=== PATIENT | female | born 1935 | race Caucasian/White ===

== ENCOUNTER 2016-11-16 08:13 | Inpatient (IN) | payer OTHER ==
[~2016-11-16 08:13] MED LIST: BACITRACIN 50,000 UNITS/10 ML SYR IRR ONE; BUPIVACAINE 0.25% 30 ML SDV ONE; BUPIVACAINE/EPI 0.25% 30 ML SDV ONE; CHLORHEXIDINE GLUC HIBICLENS 118 ML BTL TP ONE; DEXAMETHASONE 10 MG/ML VIAL IVP ONE; THROMBIN (RECOMBINANT) 5,000 UNIT VIAL TP ONE; ceFAZolin 2 GM/DEXTROSE 100 ML IV ONE; fentaNYL 100 MCG/2 ML INJ IT ONE; morphINE PF 5 MG/10 ML INJ IT ONE
[2016-11-16] MEDS ORDERED: CITRATE DEXTROSE SOLN 500 ML BAG ONE (08:52)
[2016-11-16] MEDS ORDERED: LIDOCAINE 1% 5 ML SDV ONE (09:04)
[2016-11-16] MEDS ORDERED: CEFAZOLIN 2 GM/DEXTROSE/100 ML BAG IV ONE (09:41)
[2016-11-16] MEDS ORDERED: MIDAZOLAM 2 MG/2 ML VIAL ONE (09:45)
[2016-11-16] MEDS ORDERED: REMIFENTANIL HCL 1 MG VIAL ONE (09:50)
[2016-11-16] MEDS ORDERED: KETAMINE 100 MG/10 ML SYR IVP ONE (09:50)
[2016-11-16] MEDS ORDERED: fentaNYL 100 MCG/2 ML INJ ONE ×4 (09:50→15:03)
[2016-11-16] MEDS ORDERED: PROPOFOL 200 MG/20 ML VIAL ONE (09:51)
[2016-11-16] MEDS ORDERED: LIDOCAINE 1% 5 ML SDV ID PRN (09:51)
[2016-11-16] MEDS ORDERED: LR 1,000 ML IV ONE (09:51)
[2016-11-16] MEDS ORDERED: PROPOFOL/EMULSION 500 MG/50 ML BOTTLE IV ONE (09:51)
[2016-11-16] MEDS ORDERED: LIDOCAINE 2% 5 ML SDV ONE (09:57)
[2016-11-16] MEDS ORDERED: ROCURONIUM 50 MG/5 ML VIAL ONE (09:58)
[2016-11-16] MEDS ORDERED: DESMOPRESSIN ACETATE 20 MCG in NS 50 ML IV ONE (11:00)
[2016-11-16] MEDS ORDERED: morphINE PF 5 MG/10 ML INJ ONE (11:12)
[2016-11-16] MEDS ORDERED: NALOXONE HCL 0.4 MG/ML INJ IVP PRN (14:09)
[2016-11-16] MEDS ORDERED: ONDANSETRON 4 MG/2 ML VIAL IVP PRN (14:09)
[2016-11-16] MEDS ORDERED: HYDROmorphONE/DILAUDID 1 MG/ML SYR IVP PRN (14:09)
[2016-11-16] MEDS ORDERED: LACTULOSE 20 GM/30 ML UDCUP PO PRN (14:09)
[2016-11-16] MEDS ORDERED: DIAZEPAM 5 MG TAB PO PRN (14:09)
[2016-11-16] MEDS ORDERED: DIAZEPAM 10 MG/2 ML SYR IVP PRN (14:09)
[2016-11-16] MEDS ORDERED: ONDANSETRON DISINTEGRATING 4 MG TAB PO PRN (14:09)
[2016-11-16] MEDS ORDERED: MAGNESIUM HYDROXIDE 30 ML UDCUP PO PRN (14:09)
[2016-11-16] MEDS ORDERED: METHOCARBAMOL 750 MG TAB PO PRN (14:09)
[2016-11-16] MEDS ORDERED: HYDROmorphONE/DILAUDID 6 MG/30 ML PCA IV PRN (14:09)
[2016-11-16] MEDS ORDERED: BISACODYL 10 MG SUPP PR PRN (14:09)
--- NOTE | 2016-11-16 14:17 | POSTOPPROG ---
Post Op Note Date of Operation: 11/16/16 Surgeon: Earl Olguin Fire Crew Worker: Xu Anesthesiologist: Warm Anesthesia: GET(General Endotracheal) Pre-op Diagnosis: L3/4, L4/5 spondylolisthesis Post-op Diagnosis: same Indication: low back pain, leg pain Procedure: L3/4, L4/5 TLIF Findings: djd/stenosis Inf/Abcess present in the surg proc area at time of surgery?: No EBL: 50-100 (100 ml ebl) Complications: None Drains: [place] (CLOVER x 1)
--- NOTE | 2016-11-16 14:19 | SOAPPROG ---
[facility] Progress Note Assessment/Plan: Assessment: 81 yo M sp L3-5 TLIF Plan: stable to 3N PT/OT IM to follow for medical issues please call with neuro changes 11/16/16 14:17 Subjective: + lbp, no leg pain. Objective: somnlent PERRL, no facial droop JEFF x 4 + light touch ICD10 Worksheet Patient Problems: Problems Problem Status Diagnosed Fusion of spine of lumbar region Acute - ICD10 Problem Qualifiers (1) Fusion of spine of lumbar region
--- NOTE | 2016-11-16 15:51 | GOP ---
[f rep st] OPERATIVE REPORT DATE OF OPERATION: 11/16/2016 SURGEON: Earl Olguin MD FIELD SERVICES MANAGER: Yousif Mcnair. ANESTHESIA: General endotracheal. PREOPERATIVE DIAGNOSIS: Severe multilevel degenerative joint disease with unstable spondylolisthesis and critical spinal stenosis and lateral recess impingement. Intractable back pain, and right great er than left lower extremity radicular pain and bilateral neurogenic claudication. Failed conservati ve care. High risk surgical candidate given age of 81 years, diabetes, and other comorbidities, and required surgical intervention. POSTOPERATIVE DIAGNOSIS: Severe multilevel degenerative joint disease with unstable spondylolisthesi s and critical spinal stenosis and lateral recess impingement. Intractable back pain, and right grea ter than left lower extremity radicular pain and bilateral neurogenic claudication. Failed conservat benito care. High risk surgical candidate given age of 81 years, diabetes, and other comorbidities, and required surgical intervention. PROCEDURE PERFORMED: Mini open exposure for right-sided L3-4 and L4-5 far lateral trans-facet transp edicular decompression with L3-5 posterior segmental (pedicle screw) fixation and posterolateral fusi on with local autograft and bone morphogenic protein. L3-4 and L4-5 posterior/transforaminal lumbar interbody fusion with 2 structural PEEK interbody spacers, local autograft and bone morphogenic prote in. Use of intraoperative microscopy, fluoroscopy, and computer volumetric stereotactic navigation w ith intraoperative neurophysiologic testing. Injection of intrathecal narcotic analgesics and subcut aneous and intramuscular local anesthesia for postoperative pain control. FINDINGS: ESTIMATED BLOOD LOSS: 100 cc. DESCRIPTION OF PROCEDURE: After informed consent was obtained, the patient was taken to the operatin g room and placed in the prone position on the Willie table. The lumbosacral area was prepped and d raped in sterile fashion. After fluoroscopic localization of the correct levels, the subcutaneous an d intramuscular tissues were infiltrated with local anesthesia. A midline linear incision was then created from approximately L3 through L5. This was carried down t o the fascial layer, which was then incised using the monopolar cautery and carried in a subperiostea l plane along the spinous processes and out the lamina bilaterally. Intraoperative fluoroscopy was a gain utilized to verify the correct levels. Following this, the dissection was carried out over the facet joints. The patient had extremely marycruz re arthritis and it was difficult to even identify the normal anatomy. I was able to do this with x- rays and normal anatomic landmarks. Following this, the cortical bone was scraped clear of any soft tissue and the microscope was brought in. A right-sided far lateral trans-facet transpedicular decompression was then performed at the L3-4 and L4-5 levels with complete unroofing of the facet joint and neuroforamen at L3, L4, and L5. This was a very extensive decompression, and was quite time consuming and technically challenging given the shae santana's very severe arthritis. Eventually, I was able to extensively decompress the thecal sac and neural elements. Her ligament flavum was so severely hypertrophied that it was extremely stuck to th e dura and required meticulous dissection and careful teasing of it off this in order to avoid a CSF leak. Eventually, I was able to perform a very extensive and thorough decompression of both of the c entral canal and the neuroforamen, and the lateral recess on the left by angling the microscope acros s the midline. The spinous processes were maintained, as were most of the lamina on the left side. Following this, the [employer] neuronavigational system was brought in and using computer volumetric chace reotactic navigation, pedicle screws were placed at L3, L4, and L5 on the right. It was very difficu lt to achieve really good fixation given the patient's distorted anatomy and steep angle of the pedic les. A couple of the screws did break out laterally and had to be realigned. Eventually, I did achi lena really good fixation. I was not happy with the thickness and sturdiness of the spinous processes for an interspinous process clamp, so instead I placed pedicle screws on the left as well. Each ind ividual screw was tested neurophysiologically with monopolar electrostimulation and interpretation of the potentials by the surgeon. Serial distraction was then created across first the L3-4 level, then the L4-5 level, during which ti me complete diskectomies were performed with preparation of the endplates and placement of 2 structur al PEEK interbody spacers with local autograft and bone morphogenic protein at each level for L3-4 an d L4-5 posterior/transforaminal lumbar interbody fusions. The screw and veronica systems were serially re moved, and longer rods placed with maximal lordosis and a slight amount of compression across both in terspaces in order to facilitate bony union and to minimize the potential for posterior graft migrati on. Following this, the wound was again copiously irrigated with antibiotic irrigation and meticulous hem ostasis was achieved. I elected to not place axial devices because I did not think it would add much . The remaining lamina and facet joints on the left were extensively decorticated, and the residual local autograft from the facetectomy along with bone morphogenic protein was placed out laterally for a posterolateral fusion from L3 through L5. 200 mcg of Duramorph along with 50 mcg of fentanyl were then injected intrathecally at L5-S1. The subcutaneous and intramuscular tissues were re-infiltrated with local anesthesia. A drain was pl aced and the wound was closed in a layered fashion using interrupted Vicryl sutures, followed by Ster i-Strips on the skin. COMPLICATIONS: None. INDICATIONS FOR PROCEDURE: The patient is an 81-year-old woman with intractable low back pain and ri ght greater than left lower extremity radicular and bilateral neurogenic claudication symptoms second vince to severe multilevel degenerative joint disease, and unstable spondylolisthesis and critical spin al stenosis and lateral recess impingement at the L3-4 and L4-5 levels. She also has degenerative jagruti int disease and a broad-based disk bulge at L2-3, but given the patient's age of 81 years, I felt riki t it would be prudent to try a smaller surgery in the hopes that this would solve most of her problem s and not extend up to the L2 level, even though this could easily be justified. The patient underst ands this and agrees, and wishes to focus on the L3-4 and L4-5 at this time. Even with this, she und erstands it is high risk for surgery given her age of 81 years and comorbidities, such as diabetes. DISPOSITION: The patient was extubated and transferred to the recovery room in stable condition. /[id number]/MODL
[2016-11-16] MEDS: NS W/ 20 KCl/L 1,000 ML IV SCH (16:07)
[2016-11-16] MEDS: HYDROCODONE/APAP 10/325 TAB PO PRN (16:35)
[2016-11-16] MEDS: GABAPENTIN 300 MG CAP PO SCH ×3 (16:36→21:34)
[2016-11-16] MEDS: POLYETHYLENE GLYCOL 3350 17 GM PKT PO SCH ×2 (16:37→21:34)
--- NOTE | 2016-11-16 17:29 | GCON ---
[f rep st] CONSULTATION INTERNAL MEDICINE CONSULTATION DATE OF CONSULTATION: 11/16/2016 REFERRING PHYSICIAN: Earl Olguin MD REASON FOR CONSULTATION: Multiple medical problems. HISTORY OF PRESENT ILLNESS: This is an 81-year-old female who just underwent right-sided lumbar deco mpression for severe radicular pain. There were no complications with surgery, although the patient did have severe osteoarthritis. Currently, she is doing well. She has some incisional pain at this time. She denies any shortness of breath or chest pain. She has a history of coronary artery diseas e, status post stenting many years ago. She also has a history of hypertension and a previous histor y of breast cancer. She denies any history of DVTs or bleeding. REVIEW OF SYSTEMS: A 10-point review of systems was obtained and other than stated above was negativ e. PAST MEDICAL HISTORY: 1. Hypertension. 2. Breast cancer. 3. Mild diabetes. 4. Hyperlipidemia. 5. History of coronary artery disease, status post stenting in the s. MEDICATIONS: Reviewed. SOCIAL HISTORY: No smoking or alcohol. Lives in [place] but used to live here. FAMILY HISTORY: Both parents are . PHYSICAL EXAM: VITAL SIGNS: Afebrile. Blood pressure is 112/68. Heart rate is 104. Oxygen satura tion 94% on 4 L. GENERAL: The patient is well developed, in no apparent distress. HEENT: Nonicter ic sclerae. Extraocular movements intact. Moist mucous membranes. NECK: Supple. No thyromegaly. LUNGS: Good effort. Clear to auscultation bilaterally. CARDIOVASCULAR: Regular rate and rhythm. No murmurs, gallops, or rubs. ABDOMEN: Positive bowel sounds. Soft, nontender, nondistended. No hepatosplenomegaly. EXTREMITIES: Without clubbing, cyanosis, or edema. SKIN: Without rash. Warm, dry, and intact. NEUROLOGIC: Alert and oriented x3. Moving all 4 extremities equally. PSYCH: No rmal mood and affect. LABS: None. ASSESSMENT: An 81-year-old female status post lumbar decompression. PLAN: 1. Status post lumbar decompression. We will continue to monitor the patient along with neurosurger y. 2. Hyperlipidemia. Continue medications. 3. History of coronary artery disease. We will restart aspirin whenever it is appropriate per neuro surgery. This is no hurry in this. 4. Type 2 diabetes. This appears to be mild. Can restart metformin. 5. DVT prophylaxis. Start Lovenox when appropriate. Thank you for this consultation. We will follow along with you. /[id number]/MODL
--- NOTE | 2016-11-16 17:47 | DX ---
Fluoroscopy Provided for Lumbar Spine Surgery Indication: Lumbar spine fusion. Technique: 43.1 seconds of fluoroscopy time was utilized. Cumulative dose: 26.12 mGy. Comparison: MRI lumbar spine dated August 02, 2016. Findings: Two (2) intraoperative spot films reveal placement of three-level posterior fusion construc t. Impression: Fluoroscopy provided for intraoperative localization.
[2016-11-16] MEDS: metFORMIN HCL 500 MG TAB PO SCH (18:35)
[2016-11-16] MEDS: FAMOTIDINE 20 MG/NACL 50 ML IV SCH (21:33)
[2016-11-16] MEDS: SENNOSIDES/DOCUSATE SODIUM TAB PO SCH (21:34)
[2016-11-17] MEDS: HYDROCODONE/APAP 10/325 TAB PO PRN (01:11)
[2016-11-17] MEDS: NS W/ 20 KCl/L 1,000 ML IV SCH (06:15)
[2016-11-17 06:27] LABS: % IMMATURE GRANULYOCYTES 0.3 % (0.0-1.1); ABSOLUTE IMMATURE GRANULOCYTES 0.03 10^3/uL (0.00-0.10); ADD DIFF? NO; ADD MORPH? NO; ADD SCAN? NO; ATYPICAL LYMPHOCYTE FLAG 0 (0-99); FRAGMENT RBC FLAG 0 (0-99); HEMATOCRIT 31.3 % (38.0-47.0); HEMOGLOBIN 10.1 g/dL (12.6-16.3); LEFT SHIFT FLG 0 (0-99); LIPEMIA HEMOLYSIS FLAG 80 (0-99); MEAN CELL HEMOGLOBIN 32.8 pg (27.9-34.1); MEAN CELL HEMOGLOBIN CONCENTR. 32.3 g/dL (32.4-36.7); MEAN CELL VOLUME 101.6 fL (81.5-99.8); MEAN PLATELET VOLUME 11.3 fL (8.7-11.7); PLATELET CLUMPS FLAG 0 (0-99); PLATELET COUNT 194 10^3/uL (150-400); RED BLOOD CELL COUNT 3.08 10^6/uL (4.18-5.33); RED CELL DISTRIBUTION WIDTH 12.3 % (11.5-15.2)
[2016-11-17 06:51] LABS: ANION GAP 8 mEq/L (8-16); CALCIUM 8.3 mg/dL (8.5-10.4); CARBON DIOXIDE 25 mEq/l (22-31); CHLORIDE 108 mEq/L (97-110); CREATININE 0.6 mg/dL (0.6-1.0); GLOMERULAR FILTRATION RATE > 60; GLUCOSE 140 mg/dL (70-100); POTASSIUM 4.7 mEq/L (3.5-5.2); SODIUM 141 mEq/L (134-144)
[2016-11-17] MEDS: FAMOTIDINE 20 MG/NACL 50 ML IV SCH ×2 (07:49→20:57)
[2016-11-17] MEDS: POLYETHYLENE GLYCOL 3350 17 GM PKT PO SCH ×3 (07:49→20:57)
[2016-11-17] MEDS: MAGNESIUM OXIDE 400 MG TAB PO SCH (07:50)
[2016-11-17] MEDS: ASCORBIC ACID 500 MG TAB PO SCH (07:50)
[2016-11-17] MEDS: GABAPENTIN 300 MG CAP PO SCH ×3 (07:50→20:57)
[2016-11-17] MEDS: SERTRALINE HCL 25 MG TAB PO SCH (07:50)
[2016-11-17] MEDS: PRAVASTATIN SODIUM 20 MG TAB PO SCH (07:50)
[2016-11-17] MEDS: metFORMIN HCL 500 MG TAB PO SCH ×2 (07:50→17:55)
[2016-11-17] MEDS: NIACIN 500 MG TAB PO SCH (07:50)
[2016-11-17] MEDS: PANTOPRAZOLE SODIUM 40 MG TAB PO SCH (07:51)
[2016-11-17] MEDS: SENNOSIDES/DOCUSATE SODIUM TAB PO SCH ×2 (07:51→20:57)
[2016-11-17] MEDS: ANASTROZOLE 1 MG TAB PO SCH (07:51)
[2016-11-17] MEDS: ENOXAPARIN 40 MG/0.4 ML SYR SC SCH (07:51)
--- NOTE | 2016-11-17 08:56 | NEUSURGPN ---
Date of Surgery: 11/16/16 Post Op Day: 1 Assessment/Plan: POD #1 status post L3-5 TLIF. Doing well this AM. Pain controlled Plan: Advance with PT/OT LSO when out of bed lumbar xrays today Continue CLOVER drain Discussed with Dr. Thompson Subjective: lying in bed. pain well controlled denies numbness or tingling Objective: NEURO: WINKLER, sens +LT speech clear, awake, alert Dressing: CDI Urinary Catheter in Place: No Catheter Insertion Date: 11/16/16 - CLOVER Drain Subfascial Wound Drainage (ml): 35 - Physician Discussed Patient with Dr.: Clau Neurosurgery Physical Exam - Vitals, I&O, Labs I and O 11/16/16 11/17/16 11/18/16 05:59 05:59 05:59 Intake Total 2950 1250 Output Total 880 535 Balance 2070 715 Weight 63.503 kg Intake: Oral (ml) 500 250 IV Intake (ml) 2450 IV Infused (ml) 1000 ceFAZolin 1 GM/DEXTROSE 50 50 ml @ 200 mls/hr IV Q8H SIMIN Rx#:[id number] Famotidine 20 mg/NaCl 50 50 ml @ 200 mls/hr IV Q12HRS SIMIN Rx#:[id number] NS W/ 20 KCl/L 1,000 ml @ 900 75 mls/hr IV CONT SIMIN Rx #:[id number] Output: Urine (ml) 250 500 Catheter 250 500 Estimated Blood Loss (ml) 250 Wound Drainage (ml) 380 35 Right Back [place] 380 35 Other: Number of Voids Catheter 1 Vital Signs Temp Pulse Resp BP Pulse Ox 36.7 C 94 16 112/41 L 97 11/17/16 07:36 11/17/16 07:36 11/17/16 07:36 11/17/16 07:36 11/17/16 07:36 Laboratory Results 11/17/16 04:21 11/17/16 04:21 ICD10 Worksheet Patient Problems: Problems Problem Status Diagnosed Fusion of spine of lumbar region Acute
[2016-11-17] MEDS ORDERED: NON-FORMULARY NEW DRUG (Lovastatin [Lovastatin] 20 MG) PO SCH (09:00)
[2016-11-17] MEDS ORDERED: NON-FORMULARY NEW DRUG (Omeprazole [Prilosec 20 Mg] 40 MG) PO SCH (09:00)
--- NOTE | 2016-11-17 09:15 | DX ---
Lumbar Spine, AP and Lateral Views 8:47 a.m. Clinical History: 81-year-old female who underwent an L3-L5 TLIF on November 16, 2016 and presents for postoperative assessment. Comparison Study: Intraoperative fluoroscopic images, dated November 16, 2016, and an outside MRI of t lumbar spine, dated August 02, 2016. Findings: There are five non-ribbearing lumbar-type vertebral bodies with hypoplastic T12 ribs. The b ones are mildly demineralized; however, there is no compression fracture. The patient has undergone p osterior spinal fusion from L3 to L5 with longitudinally-oriented rods secured by transpedicular scre ws. Interbody prosthetic material is seen at the L3-L4 and L4-L5 disk interspaces. There is severe L5 -S1 degenerative disk space narrowing. There is 2 mm of L2 anterolisthesis above L3, 9 mm of L4 anter olisthesis above L5, and 4 mm of L5 anterolisthesis above S1. A surgical drain is seen posteriorly. T here is mural calcification of the abdominal aorta measuring 2.6 cm proximally and 2.0 cm distally. T race mid-dextrothoracic curvature is seen. There is a calcification to the left of midline in the cau tanner pelvis, which is nonspecific but could be related to a mesenteric lymph node or a calcified leio myoma. Impression: Postoperative changes following arthrodesis from L3 to L5.
[2016-11-17] MEDS ORDERED: PROMETHAZINE HCL 25 MG/ML VIAL IV PRN (10:40)
[2016-11-17] MEDS: oxyCODONE IR 5 MG TAB PO PRN (15:56)
--- NOTE | 2016-11-17 16:53 | HOSPPROG ---
Hospitalist Progress Note Assessment/Plan: # Diabetes mellitus- blood sugars 140-236- when taking more p. o. blood sugars may go up - continue metformin # coronary artery disease- no chest pain patient clinically stable- 96% on 2 L - continue home medications # hyperlipidemia- continue home meds # Status post lumbar decompression- lumbar x-ray( personally reviewed and interpreted) shows postoperative changes - management prone Neurosurgery # acute nausea- suspect recovery secondary to anesthetic - continue p.r.n. antiemetics and limit pain medications # prophylaxis per Neurosurgery # Diet as tolerated #Disposition greater than 2 midnights as the patient is requiring IV antiemetics and pain meds postop have discussed the case with nursing will continue pain and meds and p.r.n. antiemetics Subjective: very nauseated Objective: Vital Signs Temp Pulse Resp BP Pulse Ox 36.6 C 90 16 90/63 L 96 11/17/16 16:19 11/17/16 16:19 11/17/16 16:19 11/17/16 16:19 11/17/16 16:19 Laboratory Results 11/17/16 04:21 11/17/16 04:21 11/16/16 11/17/16 11/18/16 05:59 05:59 05:59 Intake Total 2950 1700 Output Total 880 750 Balance 2070 950 - Physical Exam Constitutional: appears nourished Eyes: anicteric sclera Ears, Nose, Mouth, Throat: moist mucous membranes Cardiovascular: regular rate and rhythym Respiratory: no respiratory distress, no rales or rhonchi Gastrointestinal: normoactive bowel sounds, soft, non-tender abdomen Genitourinary: no bladder fullness Skin: warm, normal color Musculoskeletal: No asymmetric calves Neurologic: AAOx3 Psychiatric: interacting appropriately, not anxious Lymph, Heme, Immunologic: no cervical LAD ICD10 Worksheet Patient Problems: Problems Problem Status Diagnosed Fusion of spine of lumbar region Acute
[2016-11-18] MEDS: NS W/ 20 KCl/L 1,000 ML IV SCH ×2 (03:52→17:16)
[2016-11-18] MEDS: HYDROCODONE/APAP 10/325 TAB PO PRN (03:55)
[2016-11-18 05:34] LABS: ANION GAP 5 mEq/L (8-16); CALCIUM 8.3 mg/dL (8.5-10.4); CARBON DIOXIDE 27 mEq/l (22-31); CHLORIDE 105 mEq/L (97-110); CREATININE 0.6 mg/dL (0.6-1.0); GLOMERULAR FILTRATION RATE > 60; GLUCOSE 135 mg/dL (70-100); POTASSIUM 4.4 mEq/L (3.5-5.2); SODIUM 137 mEq/L (134-144)
--- NOTE | 2016-11-18 08:15 | NEUSURGPN ---
Date of Surgery: 11/16/16 Post Op Day: 2 Assessment/Plan: POD #2 status post L3-5 TLIF. Doing well this AM. Pain controlled Plan: - wear brace when OOB - PT/OT - lumbar x-rays: hardware in good placement - CLOVER drain - possible dc later today if continues to do well Subjective: No lower extremity pain, numbness, tingling. Back pain controlled. Was able to sleep through the night. Objective: Awake. Alert. PERRL. EOMI Following commands Strength full at 5/5 Sensation intact Incision with dressing c/d/i Catheter Insertion Date: 11/16/16 - Physician Discussed Patient with : Clau Neurosurgery Physical Exam - Vitals, I&O, Labs I and O 11/17/16 11/18/16 11/19/16 05:59 05:59 05:59 Intake Total 2950 3900 Output Total 880 1632 Balance 2070 2268 Weight 63.503 kg Intake: Oral (ml) 500 1050 IV Intake (ml) 2450 900 IV Infused (ml) 1950 ceFAZolin 1 GM/DEXTROSE 50 50 ml @ 200 mls/hr IV Q8H SIMIN Rx#:[id number] Famotidine 20 mg/NaCl 50 100 ml @ 200 mls/hr IV Q12HRS SIMIN Rx#:[id number] NS W/ 20 KCl/L 1,000 ml @ 1800 75 mls/hr IV CONT SIMIN Rx #:[id number] Output: Urine (ml) 250 1300 Catheter 250 500 Bedside Commode 800 Estimated Blood Loss (ml) 250 Emesis (ml) 100 Wound Drainage (ml) 35 Subfascial 35 Wound Drainage (ml) 380 197 Right Back [place] 380 197 Other: Intake Quantity Yes Sufficient Number of Voids Catheter 1 Bedside Commode 1 Number of Emesis 2 Occurrences Vital Signs Temp Pulse Resp BP Pulse Ox 37.1 C 86 16 108/60 97 11/18/16 07:50 11/18/16 07:50 11/18/16 07:50 11/18/16 07:50 11/18/16 07:50 Laboratory Results 11/17/16 04:21 11/18/16 04:25 ICD10 Worksheet Patient Problems: Problems Problem Status Diagnosed Fusion of spine of lumbar region Acute
[2016-11-18] MEDS: GABAPENTIN 300 MG CAP PO SCH ×3 (09:21→21:04)
[2016-11-18] MEDS: ENOXAPARIN 40 MG/0.4 ML SYR SC SCH (09:21)
[2016-11-18] MEDS: ANASTROZOLE 1 MG TAB PO SCH (09:21)
[2016-11-18] MEDS: ASCORBIC ACID 500 MG TAB PO SCH (09:21)
[2016-11-18] MEDS: SERTRALINE HCL 25 MG TAB PO SCH (09:21)
[2016-11-18] MEDS: PRAVASTATIN SODIUM 20 MG TAB PO SCH (09:22)
[2016-11-18] MEDS: NIACIN 500 MG TAB PO SCH (09:22)
[2016-11-18] MEDS: MAGNESIUM OXIDE 400 MG TAB PO SCH (09:22)
[2016-11-18] MEDS: metFORMIN HCL 500 MG TAB PO SCH ×2 (09:23→17:16)
[2016-11-18] MEDS: FAMOTIDINE 20 MG/NACL 50 ML IV SCH (09:23)
[2016-11-18] MEDS: SENNOSIDES/DOCUSATE SODIUM TAB PO SCH ×2 (09:23→21:04)
[2016-11-18] MEDS: PANTOPRAZOLE SODIUM 40 MG TAB PO SCH (09:23)
[2016-11-18] MEDS: diphenhydrAMINE 25 MG CAP PO PRN (10:39)
[2016-11-18] MEDS: POLYETHYLENE GLYCOL 3350 17 GM PKT PO SCH ×3 (12:05→21:04)
--- NOTE | 2016-11-18 14:20 | HOSPPROG ---
Hospitalist Progress Note Assessment/Plan: # Diabetes mellitus- blood sugars 130-145- taking more p. o. today - nausea resolved - continue metformin # coronary artery disease- no chest pain patient clinically stable- 97% on 2 L - continue home medications # hyperlipidemia- continue home meds # Status post lumbar decompression- lumbar x-ray (personally reviewed and interpreted) shows postoperative changes - management prone Neurosurgery # acute nausea- suspect recovery secondary to anesthetic - continue p.r.n. antiemetics and limit pain medications # prophylaxis per Neurosurgery # Diet - diabetic # Disposition greater than 2 midnights as the patient is requiring IV antiemetics and pain meds postop have discussed the case with nursing - suspect flushing this am related to niacin Subjective: nausea markedly improved Objective: Vital Signs Temp Pulse Resp BP Pulse Ox 36.7 C 91 16 107/47 L 97 11/18/16 12:00 11/18/16 12:00 11/18/16 12:00 11/18/16 12:00 11/18/16 12:00 Laboratory Results 11/17/16 04:21 11/18/16 04:25 11/17/16 11/18/16 11/19/16 05:59 05:59 05:59 Intake Total 2950 3900 Output Total 880 1632 Balance 2070 2268 - Physical Exam Constitutional: appears nourished Eyes: anicteric sclera Ears, Nose, Mouth, Throat: moist mucous membranes Cardiovascular: regular rate and rhythym Respiratory: no respiratory distress, no rales or rhonchi Gastrointestinal: normoactive bowel sounds, soft, non-tender abdomen Genitourinary: no bladder fullness Skin: warm, normal color Musculoskeletal: No asymmetric calves Neurologic: AAOx3 Psychiatric: interacting appropriately, not anxious Lymph, Heme, Immunologic: no cervical LAD ICD10 Worksheet Patient Problems: Problems Problem Status Diagnosed Fusion of spine of lumbar region Acute
[2016-11-18] MEDS: ACETAMINOPHEN 325 MG TAB PO PRN (17:43)
[2016-11-18] MEDS: FAMOTIDINE 20 MG TAB PO SCH (21:04)
[2016-11-19 04:34] VITALS: RESP 16
[2016-11-19] MEDS: SENNOSIDES/DOCUSATE SODIUM TAB PO SCH ×2 (08:17→21:18)
[2016-11-19] MEDS: PANTOPRAZOLE SODIUM 40 MG TAB PO SCH (08:17)
[2016-11-19] MEDS: SERTRALINE HCL 25 MG TAB PO SCH (08:17)
[2016-11-19] MEDS: ENOXAPARIN 40 MG/0.4 ML SYR SC SCH (08:17)
[2016-11-19] MEDS: FAMOTIDINE 20 MG TAB PO SCH ×2 (08:17→21:17)
[2016-11-19] MEDS: GABAPENTIN 300 MG CAP PO SCH ×3 (08:17→21:17)
[2016-11-19] MEDS: metFORMIN HCL 500 MG TAB PO SCH ×2 (08:17→17:59)
[2016-11-19] MEDS: NIACIN 500 MG TAB PO SCH (08:17)
[2016-11-19] MEDS: MAGNESIUM OXIDE 400 MG TAB PO SCH (08:18)
[2016-11-19] MEDS: PRAVASTATIN SODIUM 20 MG TAB PO SCH (08:18)
[2016-11-19] MEDS: ASCORBIC ACID 500 MG TAB PO SCH (08:18)
[2016-11-19] MEDS: ACETAMINOPHEN 325 MG TAB PO PRN ×2 (08:18→17:59)
[2016-11-19] MEDS: ANASTROZOLE 1 MG TAB PO SCH (08:18)
[2016-11-19] MEDS: POLYETHYLENE GLYCOL 3350 17 GM PKT PO SCH ×3 (09:20→21:18)
--- NOTE | 2016-11-19 10:18 | NEUSURGPN ---
Date of Surgery: 11/16/16 Post Op Day: 3 Assessment/Plan: POD #2 status post L3-5 TLIF. Doing well this AM. Pain controlled Plan: - wear brace when OOB - PT/OT - lumbar x-rays: hardware in good placement - CLOVER drain - pain slightly increased today, will work on further pain control today and discharge to [place] tomorrow Subjective: Having localized back pain. No LE symptoms. Sitting at side of bed. Objective: Awake. Alert. PERRL Following commands Muscle strength full at 5/5 Sensation intact Catheter Insertion Date: 11/16/16 - Physician Discussed Patient with : Clau Neurosurgery Physical Exam - Vitals, I&O, Labs I and O 11/18/16 11/19/16 11/20/16 05:59 05:59 05:59 Intake Total 3900 1450 900 Output Total 1632 340 Balance 2268 1110 900 Intake: Oral (ml) 1050 1450 IV Intake (ml) 900 IV Infused (ml) 1950 900 ceFAZolin 1 GM/DEXTROSE 50 50 ml @ 200 mls/hr IV Q8H SIMIN Rx#:[id number] Famotidine 20 mg/NaCl 50 100 ml @ 200 mls/hr IV Q12HRS SIMIN Rx#:[id number] NS W/ 20 KCl/L 1,000 ml @ 1800 900 75 mls/hr IV CONT SIMIN Rx #:[id number] Output: Urine (ml) 1300 250 Catheter 500 Bedside Commode 800 Toilet 250 Emesis (ml) 100 Wound Drainage (ml) 35 Subfascial 35 Wound Drainage (ml) 197 90 Right Back [place] 197 90 Other: Intake Quantity Yes Sufficient Number of Voids Catheter 1 Bedside Commode 1 Toilet 1 Number of Stools Toilet 2 Number of Emesis 2 Occurrences Vital Signs Temp Pulse Resp BP Pulse Ox 36.9 C 96 16 115/64 94 11/19/16 07:25 11/19/16 07:25 11/19/16 07:25 11/19/16 07:25 11/19/16 07:25 Laboratory Results 11/17/16 04:21 11/18/16 04:25 ICD10 Worksheet Patient Problems: Problems Problem Status Diagnosed Fusion of spine of lumbar region Acute
--- NOTE | 2016-11-19 15:16 | HOSPPROG ---
Hospitalist Progress Note Assessment/Plan: # Diabetes mellitus- blood sugars 135-232- taking adequate p. o. today - nausea resolved - continue metformin # coronary artery disease- no chest pain patient clinically stable- 94% on 2 L - continue home medications # hyperlipidemia- continue home meds # Status post lumbar decompression- lumbar x-ray (personally reviewed and interpreted) shows postoperative changes - management prone Neurosurgery # acute nausea- suspect recovery secondary to anesthetic - continue p.r.n. antiemetics and limit pain medications # prophylaxis per Neurosurgery # Diet - diabetic # Disposition greater than 2 midnights as the patient is requiring IV antiemetics and pain meds postop have discussed the case with nursing - continue pain management today Subjective: pain increased today Objective: Vital Signs Temp Pulse Resp BP Pulse Ox 36.9 C 96 16 115/64 94 11/19/16 07:25 11/19/16 07:25 11/19/16 07:25 11/19/16 07:25 11/19/16 07:25 Laboratory Results 11/17/16 04:21 11/18/16 04:25 11/18/16 11/19/16 11/20/16 05:59 05:59 05:59 Intake Total 3900 1450 900 Output Total 1632 340 Balance 2268 1110 900 - Physical Exam Constitutional: chronically ill appearing Ears, Nose, Mouth, Throat: moist mucous membranes Cardiovascular: regular rate and rhythym Respiratory: no respiratory distress, no rales or rhonchi Gastrointestinal: normoactive bowel sounds, soft, non-tender abdomen Genitourinary: no bladder fullness Skin: warm, normal color Musculoskeletal: No asymmetric calves Neurologic: AAOx3 Psychiatric: interacting appropriately, not anxious Lymph, Heme, Immunologic: no cervical LAD ICD10 Worksheet Patient Problems: Problems Problem Status Diagnosed Fusion of spine of lumbar region Acute
[2016-11-19] MEDS: oxyCODONE IR 5 MG TAB PO PRN (21:17)
[2016-11-19 23:46] VITALS: O2SAT 92
[2016-11-19] MEDS: diphenhydrAMINE 25 MG CAP PO PRN (23:56)
[2016-11-20 05:18] LABS: HEMATOCRIT 27.7 % (38.0-47.0); MEAN CELL HEMOGLOBIN 32.8 pg (27.9-34.1); MEAN CELL HEMOGLOBIN CONCENTR. 32.5 g/dL (32.4-36.7); MEAN CELL VOLUME 101.1 fL (81.5-99.8); RED BLOOD CELL COUNT 2.74 10^6/uL (4.18-5.33); RED CELL DISTRIBUTION WIDTH 12.1 % (11.5-15.2)
--- NOTE | 2016-11-20 06:57 | NEUSURGPN ---
Date of Surgery: 11/16/16 Post Op Day: 4 Assessment/Plan: Assessment: POD #4 status post L3-5 TLIF Plan: -doing better this am, pain well controlled -wear brace when OOB -PT/OT-CPM -lumbar x-rays: hardware in good placement -CLOVER drain to be removed-ok with Dr Thompson -pain stable on current plan-rxs already written on chart -passing gas/moving bowels -plan for dc home today -pt in agreement with dc as well Subjective: Awake and alert. NAD. Eating/drinking and voiding. No f/c/n/v/d. No other complaints or concerns. Objective: Awake. Alert. PERRL Following commands Muscle strength full at 5/5 Sensation intact CDI, no fluctuance Neuro Check Frequency: per routine Urinary Catheter in Place: No Catheter Insertion Date: 11/16/16 - Physician Discussed Patient with : [facility] Physical Exam - Vitals, I&O, Labs I and O 11/19/16 11/20/16 11/21/16 05:59 05:59 05:59 Intake Total 1450 1650 Output Total 340 30 Balance 1110 1620 Intake: Oral (ml) 1450 750 IV Infused (ml) 900 NS W/ 20 KCl/L 1,000 ml @ 900 75 mls/hr IV CONT SIMIN Rx #:[id number] Output: Urine (ml) 250 Toilet 250 Wound Drainage (ml) 90 30 Right Back Willie [place] 90 30 Other: Number of Voids Toilet 1 2 Number of Stools Toilet 2 Vital Signs Temp Pulse Resp BP Pulse Ox 36.7 C 88 16 117/66 92 11/19/16 23:45 11/19/16 23:45 11/19/16 23:45 11/19/16 23:45 11/19/16 23:45 Laboratory Results 11/20/16 04:16 11/18/16 04:25 ICD10 Worksheet Patient Problems: Problems Problem Status Diagnosed Fusion of spine of lumbar region Acute
[2016-11-20 07:23] VITALS: BP 137/64; PULSE 97; TEMP 98.4
[2016-11-20] MEDS: SENNOSIDES/DOCUSATE SODIUM TAB PO SCH (08:15)
[2016-11-20] MEDS: POLYETHYLENE GLYCOL 3350 17 GM PKT PO SCH (08:15)
[2016-11-20] MEDS: ENOXAPARIN 40 MG/0.4 ML SYR SC SCH (08:50)
[2016-11-20] MEDS: metFORMIN HCL 500 MG TAB PO SCH (08:50)
[2016-11-20] MEDS: NIACIN 500 MG TAB PO SCH (08:50)
[2016-11-20] MEDS: ASCORBIC ACID 500 MG TAB PO SCH (08:50)
[2016-11-20] MEDS: MAGNESIUM OXIDE 400 MG TAB PO SCH (08:51)
[2016-11-20] MEDS: ANASTROZOLE 1 MG TAB PO SCH (08:51)
[2016-11-20] MEDS: SERTRALINE HCL 25 MG TAB PO SCH (08:51)
[2016-11-20] MEDS: FAMOTIDINE 20 MG TAB PO SCH (08:51)
[2016-11-20] MEDS: PRAVASTATIN SODIUM 20 MG TAB PO SCH (08:51)
[2016-11-20] MEDS: GABAPENTIN 300 MG CAP PO SCH (08:51)
[2016-11-20] MEDS: PANTOPRAZOLE SODIUM 40 MG TAB PO SCH (08:51)
--- NOTE | 2016-11-20 10:56 | PDIAF ---
- Diagnosis Diagnosis: s/p lumbar fusion Code Status: Full Code - Medication Management Discharge Medications: Medications to Continue on Transfer Anastrozole [Arimidex 1 mg (*)] 1 mg PO DAILY 10/27/16 [Last Taken 11/09/16] Ascorbic Acid [Vitamin C 500 mg (*)] 500 mg PO DAILY 10/27/16 [Last Taken ] Gabapentin [Neurontin 300 MG (*)] 300 mg PO TID 10/27/16 [Last Taken 11/15/16] Lovastatin 20 mg PO DAILY 10/27/16 [Last Taken 11/15/16] Magnesium Oxide [Magnesium Oxide 400 mg (*)] 400 mg PO DAILY 10/27/16 [Last Taken 11/09/16] Niacin [Niacin 500 mg (*)] 500 mg PO DAILY 10/27/16 [Last Taken 11/16/16 06:00] [place]-3 Fatty Acids [Fish Oil 1000 mg (*)] 1,000 mg PO DAILY 10/27/16 [Last Taken 11/09/16] Omeprazole [Prilosec 20 mg] 40 mg PO DAILY 10/27/16 [Last Taken 11/16/16 06:00] Sertraline HCl [Zoloft 25mg (*)] 25 mg PO DAILY 10/27/16 [Last Taken 11/16/16 06 :00] traMADol [Ultram 50 mg (*)] 50 mg PO BID PRN 10/27/16 [Last Taken 11/15/16] Acetaminophen [Tylenol 325mg (*)] 325 - 650 mg PO Q4HRS PRN #0 tab 11/20/16 [ Last Taken Unknown] Enoxaparin [Lovenox 40 MG (*)] 40 mg SC DAILY #7 syr 11/20/16 [Last Taken Unknown] HYDROcodone/APAP 10/325 [[place] 10/325 (*)] 1 - 2 tab PO Q6HRS PRN #40 tab [Last Taken Unknown] Methocarbamol [Robaxin 750 mg (*)] 750 mg PO QID PRN #60 tab 11/20/16 [Last Taken Unknown] Ondansetron Odt [Zofran Odt 4 mg (*)] 4 mg PO Q6HRS PRN #20 tab 11/20/16 [Last Taken Unknown] Sennosides/Docusate Sodium [Senokot-S] 1 - 2 tab PO BID #30 tab 11/20/16 [Last Taken Unknown] metFORMIN HCL [Glucophage 500 mg (*)] 500 mg PO BIDMEAL #60 tab 11/20/16 [Last Taken Unknown] oxyCODONE CR [Oxycontin] 10 mg PO Q12HRS #42 tab 11/20/16 [Last Taken Unknown] oxyCODONE IR [Oxycodone Ir (*)] 5 mg PO Q3HRS PRN #90 tab 11/20/16 [Last Taken Unknown] Bone Drier Operator Antibiotics: none Discharge Medications: Refer to the Discharge Home Medication list for PRN reason. PICC Care - Routine: N/A - Orders Services needed: Home Care, Registered Nurse, Physical Therapy, Occupational Therapy Home Care Face to Face: I certify that this patient was under my care and that I had the required [id number] encounter meeting the encounter requirements on the discharge day. My findings support the fact that the patient is homebound as defined in CMS Chapter 7 Medicare Benefits Manual 30.1.1, The condition of the patient is such that there exists a normal inability to leave home and consequently, leaving home would require a considerable and taxing effort. Oxygen: to keep O2 sat greater than 90% Diet Recommendation: no restrictions on diet Diet Texture: Regular Texture Diet Tube feeding: n/a Webber: Not applicable Nicholas Stockings Discontinue Date: continue until walking 100yrds 3x per day Wound Care Instructions: steristrips on for 10-14 days - Follow Up Care Current Providers and Referrals: OUT OF STATE,. [Primary Care Provider] - Earl Olguin MD [Medical Doctor] - (follow up in 2-3 weeks)
--- NOTE | 2016-11-20 15:50 | HOSPPROG ---
Hospitalist Progress Note Assessment/Plan: # Diabetes mellitus- blood sugars 130-230's- taking a normal p. o. today - nausea resolved - continue metformin on discharge # coronary artery disease- no chest pain patient clinically stable- 92% on room air - continue home medications # hyperlipidemia- continue home meds # Status post lumbar decompression- lumbar x-ray (personally reviewed and interpreted) shows postoperative changes - management prone Neurosurgery # acute nausea- suspect recovery secondary to anesthetic - continue p.r.n. antiemetics and limit pain medications # prophylaxis per Neurosurgery # Diet - diabetic # Disposition expect today with outpatient neurosurgical follow-up have discussed the case with nursing - patient ready for discharge Subjective: feeling well pain controlled Objective: Vital Signs Temp Pulse Resp BP Pulse Ox 36.9 C 97 16 137/64 H 92 11/20/16 07:20 11/20/16 07:20 11/20/16 07:20 11/20/16 07:20 11/20/16 07:20 Laboratory Results 11/20/16 04:16 11/18/16 04:25 11/19/16 11/20/16 11/21/16 05:59 05:59 05:59 Intake Total 1450 1650 Output Total 340 30 Balance 1110 1620 - Physical Exam Constitutional: appears nourished Eyes: anicteric sclera Ears, Nose, Mouth, Throat: moist mucous membranes Cardiovascular: regular rate and rhythym Respiratory: no respiratory distress, no rales or rhonchi Gastrointestinal: normoactive bowel sounds, soft, non-tender abdomen Genitourinary: no bladder fullness Skin: warm, normal color Musculoskeletal: No asymmetric calves Neurologic: AAOx3 Psychiatric: interacting appropriately Lymph, Heme, Immunologic: no cervical LAD ICD10 Worksheet Patient Problems: Problems Problem Status Diagnosed Fusion of spine of lumbar region Acute
== END 2016-11-20 11:46 | disposition home health service (06) | DRG 460 ==
LOC: F3E 08:13 → F3N 15:29
PROVIDERS: ADMIT Neurological Surgery; ATTEND Neurological Surgery
PROC: 3E0U0GB Introduction of Recombinant Bone Morphogenetic Protein into Joints, Open Approach (ICD-10-PCS; principal; 2016-11-16 09:45)
PROC: 0SG10AJ Fusion of 2 or more Lumbar Vertebral Joints with Interbody Fusion Device, Posterior Approach, Anterior Column, Open Approach (ICD-10-PCS; principal; 2016-11-16 09:45)
PROC: 01NB0ZZ Release Lumbar Nerve, Open Approach (ICD-10-PCS; principal; 2016-11-16 09:45)
DX: M43.16 Spondylolisthesis, lumbar region (principal); M47.26 Other spondylosis with radiculopathy, lumbar region; M48.06 Spinal stenosis, lumbar region; R11.0 Nausea; E11.9 Type 2 diabetes mellitus without complications; I25.10 Atherosclerotic heart disease of native coronary artery without angina pectoris; E78.5 Hyperlipidemia, unspecified; I10 Essential (primary) hypertension; Z95.5 Presence of coronary angioplasty implant and graft; Z85.3 Personal history of malignant neoplasm of breast
CPT/HCPCS: 97116-GP; 97162-GP; 97165-GO; 97535-GO; C1713; G8978-GP-CK; G8979-GO-CI; G8979-GP-CI; G8980-GO-CI; G8987-GO-CI; G8987-GO-CK; G8988-GO-CI; G8989-GO-CI; J0690; J1170; J1650; J2250; J2274; J2405; J2550; J2597; J2704; J3010; J7060

== ENCOUNTER 2018-07-16 10:34 | Inpatient (IN) | payer OTHER ==
[~2018-07-16 10:34] MED LIST changes: -BACITRACIN 50,000 UNITS/10 ML SYR IRR ONE; -BUPIVACAINE 0.25% 30 ML SDV ONE; -BUPIVACAINE/EPI 0.25% 30 ML SDV ONE; -CHLORHEXIDINE GLUC HIBICLENS 118 ML BTL TP ONE; -DEXAMETHASONE 10 MG/ML VIAL IVP ONE; -THROMBIN (RECOMBINANT) 5,000 UNIT VIAL TP ONE; +TRANEXAMIC ACID 1,000 MG in NS 100 ML IV ONE; -ceFAZolin 2 GM/DEXTROSE 100 ML IV ONE; -fentaNYL 100 MCG/2 ML INJ IT ONE; +fentaNYL 50 MCG in SYRINGE INTRATHECAL 1 SYR IT ONE; +morphINE PF 0.2 MG in SYRINGE INTRATHECAL 1 SYR IT ONE; -morphINE PF 5 MG/10 ML INJ IT ONE
[2018-07-16] MEDS ORDERED: GABAPENTIN 300 MG CAP PO ONE (10:49)
[2018-07-16] MEDS ORDERED: ACETAMINOPHEN 500 MG TAB PO ONE (10:49)
[2018-07-16] MEDS ORDERED: ceFAZolin 2 GM/DEXTROSE 100 ML IV ONE (10:49)
[2018-07-16] MEDS ORDERED: LR 1,000 ML IV ONE (10:50)
[2018-07-16] MEDS ORDERED: CITRATE DEXTROSE SOLN 500 ML BAG ONE (10:56)
[2018-07-16] MEDS ORDERED: BACITRACIN 50,000 UNITS/10 ML SYR IRR ONE (10:56)
[2018-07-16] MEDS ORDERED: THROMBIN (BOVINE) 20,000 UNIT VIAL TP ONE (10:56)
[2018-07-16] MEDS ORDERED: BUPIVACAINE 0.25% 30 ML SDV ONE (10:56)
[2018-07-16] MEDS ORDERED: CHLORHEXIDINE GLUC HIBICLENS 118 ML BTL TP ONE (10:57)
[2018-07-16] MEDS ORDERED: EPINEPHrine 1 MG/ML INJ ONE (10:57)
--- NOTE | 2018-07-16 11:05 | PDHPUP ---
History & Physical Update H&P update statement: This history and physical update is based on an assessment of the patient which was completed after admission or registration (within 24 hours), but prior to the surgery/procedure. H&P update: no change in patient's condition since H&P completed
[2018-07-16] MEDS ORDERED: PROPOFOL/EMULSION 500 MG/50 ML BOTTLE IV ONE (11:32)
[2018-07-16] MEDS ORDERED: ROCURONIUM 50 MG/5 ML VIAL ONE (11:32)
[2018-07-16] MEDS ORDERED: PROPOFOL 200 MG/20 ML VIAL ONE (11:32)
[2018-07-16] MEDS ORDERED: REMIFENTANIL HCL 1 MG VIAL ONE ×2 (11:32→11:33)
[2018-07-16] MEDS ORDERED: LIDOCAINE 2% 2 ML INJ ONE (11:32)
[2018-07-16] MEDS ORDERED: fentaNYL 100 MCG/2 ML INJ ONE ×2 (11:32→15:47)
--- NOTE | 2018-07-16 11:46 | PDANEPAE ---
ANE History of Present Illness worsening right pain ANE Past Medical History - Cardiovascular History Hx Hypertension: Yes Hx Arrhythmias: No Hx Chest Pain: No Hx Coronary Artery / Peripheral Vascular Disease: Yes Hx CHF / Valvular Disease: No Hx Palpitations: No Cardiovascular History Comment: Pt denies cardiac hx. Daughter states pt had stent placed in the '80's with no changes or cardiac issues since. - Pulmonary History Hx COPD: No Hx Asthma/Reactive Airway Disease: No Hx Recent Upper Respiratory Infection: No Hx Oxygen in Use at Home: No Hx Sleep Apnea: No Sleep Apnea Screening Result - Last Documented: Negative - Neurologic History Hx Cerebrovascular Accident: No Hx Seizures: No Hx Dementia: No - Endocrine History Hx Diabetes: Yes Endocrine History Comment: Pt states she is pre-diabetic and no longer checks blood sugars at home as they were all normal - Renal History Hx Renal Disorders: No - Liver History Hx Hepatic Disorders: No - Neurological & Psychiatric Hx Hx Neurological and Psychiatric Disorders: No Neurological / Psychiatric History Comment: ANXIETY ATTACK. BELEIVES IN LAUGHTER - Cancer History Hx Cancer: Yes Cancer History Comment: BREAST, left. BLADDER - polyps - Congenital Disorder History Hx Congenital Disorders: No - GI History Hx Gastrointestinal Disorders: Yes Gastrointestinal History Comment: GERD. frequent constipation - Other Health History Other Health History: SPINAL STENOSIS. galucoma, rt eye - Chronic Pain History Chronic Pain: Yes (Low Back) - Surgical History Prior Surgeries: L4-5, L3-4 TLIF w/hardware, 11/2016. BLADDER CYSTS. TONSILLECTOMY. PILONIDAL CYST. LT MASTECTOMY FOR CA 2011. FELICE CATARACT ANE Review of Systems Review of systems is: negative Review of Systems: - Exercise capacity Exercise capacity: limited by disability METS (RN): 2 METS ANE Patient History - Allergies Allergies/Adverse Reactions: codeine Allergy (Verified 07/12/18 17:18) Vomiting morphine Allergy (Verified 07/12/18 17:18) Vomiting - Home Medications Home Medications: Anastrozole [Arimidex 1 mg (*)] 10/27/16 [Last Taken 11/09/16] Lovastatin 10/27/16 [Last Taken 11/15/16] Sertraline HCl [Zoloft 25mg (*)] 10/27/16 [Last Taken 11/16/16 06:00] Adult One Daily Multivit Tab 07/12/18 [Last Taken Unknown] Aleve 07/12/18 [Last Taken Unknown] Aspirin 81mg (*) 07/12/18 [Last Taken Unknown] Losartan Potassium 07/12/18 [Last Taken Unknown] Melatonin 07/12/18 [Last Taken Unknown] Metoprolol Succinate 07/12/18 [Last Taken Unknown] Niacin 07/12/18 [Last Taken Unknown] Oxybutynin Chloride 07/12/18 [Last Taken Unknown] Preservision Areds 2 Softgel 07/12/18 [Last Taken Unknown] Ranitidine HCl 07/12/18 [Last Taken Unknown] Stool Softener 07/12/18 [Last Taken Unknown] metFORMIN HCL [Glucophage 500 mg (*)] 07/12/18 [Last Taken Unknown] - NPO status NPO Status: no food or drink >8 hours NPO Since - Liquids (Date): 07/15/18 NPO Since - Liquids (Time): 18:30 NPO Since - Solids (Date): 07/15/18 NPO Since - Solids (Time): 18:30 - Anes Hx Anes Hx: no prior problems - Smoking Hx Smoking Status: Former smoker - Alcohol Use Alcohol Use: None - Family Anes Hx Family Anes Hx: none Family Hx Anesthesia Complications: none ANE Labs/Vital Signs - Vital Signs Blood Pressure: 130/78 Heart Rate: 105 Respiratory Rate: 15 O2 Sat (%): 91 Height: 162.56 cm Weight: 62.596 kg ANE Physical Exam - Airway Neck exam: FROM Mallampati Score: Class 2 Mouth exam: poor dentition - Pulmonary Pulmonary: no respiratory distress - Cardiovascular Cardiovascular: regular rate and rhythym - ASA Status ASA Status: III ANE Anesthesia Plan Anesthesia Plan: general endotracheal anesthesia
[2018-07-16] MEDS ORDERED: *INTRAOP 1000MG*TRANEX ACID/NS 100 ML IV ONE (12:30)
[2018-07-16] MEDS ORDERED: THROMBIN (BOVINE) 5,000 UNIT VIAL TP ONE (13:48)
[2018-07-16] MEDS ORDERED: ONDANSETRON 4 MG/2 ML VIAL ONE ×2 (14:35→15:47)
--- NOTE | 2018-07-16 15:21 | POSTANESTH ---
Post Anesthetic Evaluation Cardiovascular Status: Normal, Stable Respiratory Status: Normal, Stable Level of Consciousness/Mental Status: Can Participate in Eval Pain Control: Adequate, Prn Tx Ordered Nausea/Vomiting Control: Adequate, Prn Tx Ordered Complications Possibly Related to Anesthesia: None Noted
[2018-07-16] MEDS ORDERED: NALOXONE HCL 0.4 MG/ML INJ IVP PRN (15:22)
[2018-07-16] MEDS ORDERED: ONDANSETRON 4 MG/2 ML VIAL IVP PRN ×2 (15:22→15:26)
[2018-07-16] MEDS ORDERED: oxyCODONE IR 5 MG TAB PO PRN (15:22)
[2018-07-16] MEDS ORDERED: ALBUTEROL 3 ML DEYVIAL IH PRN (15:22)
[2018-07-16] MEDS ORDERED: DIAZEPAM 5 MG/ML 1 ML SYR IVP PRN (15:22)
[2018-07-16] MEDS ORDERED: fentaNYL 100 MCG/2 ML INJ IVP PRN (15:22)
[2018-07-16] MEDS ORDERED: ACETAMINOPHEN 500 MG TAB PO PRN (15:22)
[2018-07-16] MEDS ORDERED: BISACODYL 10 MG SUPP PR PRN (15:26)
[2018-07-16] MEDS ORDERED: LACTULOSE 20 GM/30 ML UDCUP PO PRN (15:26)
[2018-07-16] MEDS ORDERED: diphenhydrAMINE 25 MG CAP PO PRN (15:26)
[2018-07-16] MEDS ORDERED: HYDROmorphONE/DILAUDID 1 MG/ML INJ ONE (15:30)
[2018-07-16] MEDS: HYDROmorphONE/DILAUDID 1 MG/ML INJ IVP PRN ×2 (15:34→15:44)
--- NOTE | 2018-07-16 15:35 | POSTOPPROG ---
Post Op Note Date of Operation: 07/16/18 Surgeon: Earl Olguin Flexo Press Operator: Willie Sherman Anesthesiologist: Leandro Gomez MD Anesthesia: GET(General Endotracheal) Pre-op Diagnosis: L2/3 stenosis/DJD Post-op Diagnosis: same Indication: Low back and right leg pain Procedure: L3-5 hardware removal, L2/3 TLIF, L2-4 fusion Findings: L2/3 DJD, Stenosis Inf/Abcess present in the surg proc area at time of surgery?: No EBL: 100-500 Complications: none Drains: Willie Park (to bulb suction)
--- NOTE | 2018-07-16 15:36 | SOAPPROG ---
SOAP Progress Note Assessment/Plan: Assessment: POST OP CHECK: Doing well sp L3-5 hardware removal and L2/3 TLIF and L2-4 fusion Plan: CPM in PACU transfer to floor per protocol CLOVER to bulb suction Hospitalist consult obtained and currently being seen in PACU by Dr. Bella 07/16/18 15:35 07/16/18 15:58 Subjective: awake, alert, comfortable Objective: Vital Signs Temp Pulse Resp BP Pulse Ox 36.6 C 105 H 15 130/78 H 91 L 07/16/18 11:00 07/16/18 11:46 07/16/18 11:46 07/16/18 11:46 07/16/18 11:46 Neuro: awake, comfortable. conversant. ALBERT WINKLER, sens +LT follows commands x 4 Vitals: BP: 136/80 HR: 102 O2:95% ICD10 Worksheet Patient Problems: Problems Problem Status Onset Fusion of spine of lumbar region Acute
[2018-07-16] MEDS ORDERED: D50W 25 GM/50 ML SYR IVP PRN (16:03)
--- NOTE | 2018-07-16 16:05 | GOP ---
DATE OF OPERATION: 07/16/2018 SURGEON: Earl Olguin MD NEUROSURGEON: Earl Olguin MD CASINO DUTY MANAGER: MANE Vila ANESTHESIA: General endotracheal. PREOPERATIVE DIAGNOSIS: Severe adjacent level degeneration and spinal stenosis at L2-3, status post prior L3 through 5 instrumented decompression and stabilization/fusion. Intractable low back pain an d right lower extremity radiculopathy. Failed conservative care. High risk surgical candidate given age of 83 years, comorbidities, and required surgical intervention. POSTOPERATIVE DIAGNOSIS: Severe adjacent level degeneration and spinal stenosis at L2-3, status post prior L3 through 5 instrumented decompression and stabilization/fusion. Intractable low back pain a nd right lower extremity radiculopathy. Failed conservative care. High risk surgical candidate give n age of 83 years, comorbidities, and required surgical intervention. PROCEDURE PERFORMED: Removal of posterior segmental (pedicle screw) fixation at L3 through L5 with e xploration of spinal fusion at that level. Right-sided L2-3 far lateral transpedicular decompression with L2 through 4 posterior segmental (pedicle screw and axle device) fixation and posterior lateral fusion with local autograft, bone morphogenic protein and morselized allograft. L2-3 posterior/faith sforaminal lumbar interbody fusion with 2 structural PEEK interbody spacers, local autograft, and bon e morphogenic protein. Use of intraoperative microscopy, fluoroscopy, and computer volumetric stereo tactic navigation with intraoperative neurophysiologic testing. Injection of intrathecal narcotic an algesics for postoperative pain control. FINDINGS: ESTIMATED BLOOD LOSS: 150 cc. INDICATIONS: The patient is an 83-year-old woman who had a previous L3 through 5 decompression and s tabilization procedure with pedicle screws and rods. She presents with intractable low back pain and right lower extremity radicular symptoms, secondary to severe adjacent level degeneration and critic al spinal stenosis at the L2-3 level. She has failed extensive conservative care and presents now fo r removal and replacement of instrumentation and extension of the decompression and fusion procedure after failing conservative care. DESCRIPTION OF PROCEDURE: After informed consent was obtained, the patient was taken to the operatin g room and placed in the prone position on the Willie table. The lumbosacral area was prepped and d raped in a sterile fashion. After fluoroscopic localization of correct levels, the subcutaneous and intramuscular tissues were infiltrated with local anesthesia. A midline linear incision was then created over the L2-5 spinous processes. This was carried down to the fascial layer, which was incised using monopolar electrocautery and carried in a subperiosteal p kavon along the spinous processes and lamina bilaterally. Intraoperative fluoroscopy was again utiliz ed to verify the correct levels. The prior instrumentation was then identified at L3 through L5 and carefully dissected out and remove d in the standard fashion. The prior fusion was explored and inspected and noted to be solid. The m icroscope was then brought in and a right-sided L2-3 far lateral transpedicular decompression was per formed with complete unroofing of the facet joint and neural foramen at L2 and L3, as well as the kingsley tral canal. Following adequate decompression, the [employer] neuronavigational system was brought in and using compu ter volumetric stereotactic navigation, pedicle screws were placed at L2, L3, and L4 bilaterally. Ea ch individual screw was tested neurophysiologically with monopolar electrostimulation and interpretat ion of the potentials by the surgeon. Rods were then placed and secured under distraction across the L2-3 level during which time a complete diskectomy was performed with preparation of the endplates a nd placement of two 10 mm structural PEEK interbody spacers, local autograft, and bone morphogenic pr otein, as well as morselized allograft for an L2-3 posterior/transforaminal lumbar interbody fusion. Following this, the rods were removed and longer rods extending from L2-L4 were placed and secured u nder compression across the L2-3 interspace in order to facilitate bony union and to minimize the pot ential for posterior graft migration. The remaining lamina and facet joints on the left were then ex tensively decorticated and the residual local autograft, bone morphogenic protein, and morselized all ograft was placed out laterally from L2-L4 for posterolateral fusion. An axle device was then placed at the L3-4 level in order to prevent hardware failure given the fact that the patient's bone screw interface was very weak as a result of the patient's soft bone. Following this, the wound was copiously irrigated with antibiotic the irrigation, and the residual la ephraim and facet joints were decorticated and the bone graft placed out laterally for posterolateral fu jayme at L2-L4. Following re-verification of good position of the screws, rods, and interbody spacers , and the interspinous process clamp using biplanar fluoroscopy, a drain was placed. 200 mcg of Dura morph, along with 50 mcg of fentanyl were injected intrathecally for postoperative pain control. The subcutaneous and intramuscular tissues were re-infiltrated with local anesthesia and the wound was c losed in a layered fashion using interrupted Vicryl sutures, followed by Steri-Strips on the skin. COMPLICATIONS: None. DISPOSITION: The patient is currently in the process being repositioned for extubation. /[id number]/MODL
--- NOTE | 2018-07-16 17:01 | PDMN ---
Medical Necessity Medical necessity: [facility] IP only surgery; cpt 00601 Removal of Posterior Hardware, [address]62 Lumbar Fusion (L3/5 TLIF)
[2018-07-16] MEDS: POLYETHYLENE GLYCOL 3350 17 GM PKT PO SCH ×2 (17:23→21:14)
--- NOTE | 2018-07-16 17:40 | GCON ---
[facility] MEDICINE CONSULTATION DATE OF CONSULTATION: 07/16/2018 REFERRING PHYSICIAN: Earl Olguin MD REQUESTING PHYSICIAN: Earl Olguin MD. REASON FOR CONSULTATION: Postoperative medical management of diabetes and hypertension. HISTORY OF PRESENT ILLNESS: This is an 83-year-old female, postoperative day 0 L2/3 TLIF and removal of hardware at L3/L5 for L2/3 stenosis, has a history of diabetes, hypertension, and chronic ischemi c heart disease, who I have been asked to see for postoperative medical management. The patient was seen in PACU where she denied any chest pain or shortness of breath. She was having some nausea duri ng the time of my exam and was given some Zofran and had 1 episode of emesis. She was seen by her [facility] care provider on 07/05/2018, where she was cleared for surgery. PAST MEDICAL HISTORY: 1. Hypertension. 2. Chronic ischemic heart disease. 3. Emphysema. 4. Type 2 diabetes mellitus without complications. 5. Essential tremor. 6. Hyperlipidemia. 7. Major depressive disorder. 8. Anxiety disorder. 9. Chronic low back pain. 10. GERD. 11. Breast cancer. PAST SURGICAL HISTORY: 1. Per records, the patient had a stent placed in the 1980s, which I doubt is true since my understa nding is stents were not available in the . 2. L4/5 and L3/4 TLIF with hardware in 2016. 3. Tonsillectomy. 4. Bladder cyst removal. 5. Left mastectomy for cancer in 2011. 6. Bilateral cataract surgery. HOME MEDICATIONS: Reviewed. Refer to [facility] for details. ALLERGIES: Morphine and codeine. SOCIAL HISTORY: The patient lives in [place]. She is a former smoker. She quit smoking in 1991. She denies any alcohol use. FAMILY HISTORY: Reviewed and noncontributory. REVIEW OF SYSTEMS: Comprehensive 10-point review of systems was done and is negative except for as m entioned in the HPI. PHYSICAL EXAM: VITAL SIGNS: Blood pressure 131/61, pulse 111, respiratory rate 15, O2 saturation 98 % on room air, temperature afebrile. GENERAL: No acute distress. Does appear to be uncomfortable. HEAD: Normocephalic, atraumatic. EYES: PERRLA. Sclerae anicteric. MOUTH: Moist mucous membrane s. NECK: Supple. CARDIOVASCULAR: Tachycardic. S1, S2. No JVD. No lower extremity edema. PULMO NARY: Lungs are clear. No wheezes, rales, or rhonchi. ABDOMEN: Soft, nontender, nondistended. No guarding or rebound tenderness. Normoactive bowel sounds. EXTREMITIES: No clubbing or cyanosis. NEURO: Cranial nerves 2-12 grossly intact. Moves all extremities. SKIN: Clear. No rashes. DIAGNOSTICS: I do not have access to any preoperative laboratory studies. Frbil-hb-vufy glucose at 11:23 today was 138. ASSESSMENT AND PLAN: This is an 83-year-old female, postoperative day 0 L2/3 transforaminal lumbar i nterbody fusion, lumbar laminectomy, and fusion with: 1. Postoperative nausea and vomiting most likely due to effects of anesthesia. PLAN: The patient w ill be treated with anti-emetics. We will also obtain a baseline EKG to evaluate for possible post-p rocedural myocardial infarction. We will also add a troponin. 2. History of type 2 diabetes mellitus. PLAN: I would recommend holding her metformin until she is able to tolerate a regular diet. I have placed her on a correctional insulin protocol. Blood sugar s to be checked before meals and at bedtime. 3. History of hypertension. PLAN: Monitor blood pressure and continue home medications as indicate d. Thank you for allowing me to participate in the care of this patient. The Hospitalist service will c georges to follow along with you throughout her hospital stay. /[id number]/MODL
[2018-07-16] MEDS: INSULIN LISPRO 100 UNIT/ML SC SCH (18:35)
[2018-07-16] MEDS: PROMETHAZINE HCL 25 MG/ML INJ IVP PRN (18:50)
[2018-07-16] MEDS ORDERED: 1/2 NS 1,000 ML IV SCH (19:15)
[2018-07-16] MEDS ORDERED: D50W 25 GM/50 ML VIAL IVP PRN (19:30)
[2018-07-16] MEDS: CEFUROXIME 1,500 MG in NS 50 ML IV SCH (20:18)
[2018-07-16] MEDS: FAMOTIDINE 20 MG TAB PO SCH (21:13)
[2018-07-16] MEDS: SENNOSIDES/DOCUSATE SODIUM TAB PO SCH (21:13)
[2018-07-17] MEDS ORDERED: NS 500 ML IV ONE (00:08)
[2018-07-17] MEDS: CEFUROXIME 1,500 MG in NS 50 ML IV SCH (04:30)
[2018-07-17 05:20] LABS: PLATELET COUNT 216 10^3/uL (150-400)
--- NOTE | 2018-07-17 07:54 | SOAPPROG ---
SOAP Progress Note Assessment/Plan: Assessment: POD #1 s/p L3-5 hardware removal and L2/3 TLIF and L2-4 fusion Plan: advance activity PT/OT today lumbar xrays today CLOVER to bulb suction Hospitalist consult obtained Subjective: awake, alert, comfortable. Denies new issues Objective: Vital Signs Temp Pulse Resp BP Pulse Ox 37.2 C 99 16 105/61 96 07/17/18 07:28 07/17/18 07:28 07/17/18 07:28 07/17/18 07:28 07/17/18 07:28 Laboratory Results 07/17/18 04:30 07/17/18 04:30 07/16/18 07/17/18 07/18/18 05:59 05:59 05:59 Intake Total 1405 Output Total 585 Balance 820 Neuro: A+ox4 follows commands x 4, speech clear 5/5 bilateral LE sens +LT CLOVER: 40ml overnight. ICD10 Worksheet Patient Problems: Problems Problem Status Onset Fusion of spine of lumbar region Acute
[2018-07-17] MEDS: SERTRALINE HCL 25 MG TAB PO SCH (08:14)
[2018-07-17] MEDS: ANASTROZOLE 1 MG TAB PO SCH (08:14)
[2018-07-17] MEDS: MULTIVITAMINS 1 EACH TAB PO SCH (08:14)
[2018-07-17] MEDS: FAMOTIDINE 20 MG TAB PO SCH ×2 (08:14→21:45)
[2018-07-17] MEDS: METHOCARBAMOL 750 MG TAB PO PRN (08:14)
[2018-07-17] MEDS: SENNOSIDES/DOCUSATE SODIUM TAB PO SCH ×2 (08:14→21:45)
[2018-07-17] MEDS: PANTOPRAZOLE SODIUM 40 MG TAB PO SCH (08:15)
[2018-07-17] MEDS: POLYETHYLENE GLYCOL 3350 17 GM PKT PO SCH ×3 (08:15→21:45)
[2018-07-17] MEDS: METOPROLOL SUCCINATE XR 25 MG TAB PO SCH (08:15)
[2018-07-17] MEDS: ASPIRIN EC 81 MG TAB PO SCH (08:30)
[2018-07-17] MEDS: ENOXAPARIN 40 MG/0.4 ML SYR SC SCH (08:31)
[2018-07-17] MEDS: INSULIN LISPRO 100 UNIT/ML SC SCH ×3 (08:32→18:08)
[2018-07-17 09:16] LABS: INR 1.13 (0.83-1.16); PROTIME(PATIENT) 14.7 SEC (12.0-15.0)
--- NOTE | 2018-07-17 09:33 | HOSPPROG ---
Hospitalist Progress Note Assessment/Plan: Mandie Lezama is an 83 y/o female who has diabetes, htn, postoperative day 1 L2/ 3 transforaminal lumbar interbody fusion, lumbar laminectomy, and fusion. Today is my first encounter w the patient, chart reviewed. * severe low back pain w radiculopathy -POD #1 s/p L3-5 hardware removal and L2/3 TLIF and L2-4 fusion *oozing from dressings -patient had been taking her aspirin -coags stable *leukocytosis -followed * Postoperative nausea and vomiting -most likely due to effects of anesthesia. -resolved *History of type 2 diabetes mellitus. - holding her metformin until she is able to tolerate a regular diet. -sliding scale *Hypertension hx -systolic bp is in the 90's, the patient and her daughter says this is her baseline *DVT prophylaxis: lmwh Subjective: Ewa is feeling overall well, her back is tender. Objective: Vital Signs Temp Pulse Resp BP Pulse Ox 37.2 C 99 16 105/61 96 07/17/18 07:28 07/17/18 08:15 07/17/18 07:28 07/17/18 08:15 07/17/18 07:28 Laboratory Results 07/17/18 04:30 07/17/18 04:30 07/16/18 07/17/18 07/18/18 05:59 05:59 05:59 Intake Total 1405 Output Total 585 Balance 820 PT 14.7 SEC (12.0-15.0) 07/17/18 08:55 INR 1.13 (0.83-1.16) 07/17/18 08:55 - Physical Exam Constitutional: no apparent distress, appears nourished, uncomfortable Eyes: PERRL Ears, Nose, Mouth, Throat: hearing normal Cardiovascular: regular rate and rhythym Respiratory: no respiratory distress, reduced air movement Skin: warm Musculoskeletal: generalized weakness Neurologic: AAOx3 Psychiatric: interacting appropriately ICD10 Worksheet Patient Problems: Problems Problem Status Onset Fusion of spine of lumbar region Acute
[2018-07-17] MEDS: HYDROmorphONE/DILAUDID 4 MG TAB PO PRN ×2 (11:14→15:49)
[2018-07-17] MEDS: ONDANSETRON DISINTEGRATING 4 MG TAB PO PRN (11:15)
--- NOTE | 2018-07-17 17:45 | ASMTLACE ---
COLLEEN Acuity / Level of Answers: Yes Care: Did the patient have an inpatient admission? Comorbidities - select Answers: Coronary Artery Disease all that apply Diabetes (uncontrolled or controlled) Opioid dependence / Chronic pain Other Notes: HTN; GERD # of Emergency department Answers: 0 visits in the last 6 months Social determinants Answers: Mental health diagnosis (anxiety, depression, pers onality disorders, etc.) Score: 14 Date Signed: 07/17/2018 04:16 PM Electronically Signed By:CHRISTIANA Bauer
--- NOTE | 2018-07-17 19:46 | ASMTCMCOM ---
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 Pt with comorbidities including HTN, DMT2 and major depressive disorder, anxiety Chart review indicates pt resides alone in apartment in senior housing with a dghtr who lives close by. OT rec home/ HHC/SNF, PT rec HHC/home with 24/hr supervision. CM to follow pt for d/c planning. Date Signed: 07/17/2018 04:19 PM Electronically Signed By:CHRISTIANA Bauer
[2018-07-18] MEDS: HYDROmorphONE/DILAUDID 4 MG TAB PO PRN ×2 (01:09→11:27)
[2018-07-18 04:49] LABS: PLATELET COUNT 162 10^3/uL (150-400)
[2018-07-18] MEDS: INSULIN LISPRO 100 UNIT/ML SC SCH ×3 (08:13→19:16)
--- NOTE | 2018-07-18 08:38 | CPEKG ---
Test Reason : OPEN Blood Pressure : / mmHG Vent. Rate : 103 BPM Atrial Rate : 103 BPM P-R Int : 208 ms QRS Dur : 094 ms QT Int : 364 ms P-R-T Axes : 078 054 043 degrees QTc Int : 477 ms Sinus tachycardia Borderline prolonged AK interval Confirmed by Ethan Walter ([id number]) on 07/18/2018 8:38:25 AM Referred By: Confirmed By:Ethan Walter
--- NOTE | 2018-07-18 08:51 | NEUSURGPN ---
Assessment/Plan: Assessment: POD #2 s/p L3-5 hardware removal and L2/3 TLIF and L2-4 fusion Plan: advance activity PT/OT today lumbar xrays pending today TEDs, SCDs, start lovenox today CLOVER to bulb suction - leave in place Hospitalist consult - appreciate assistance D/w Dr Thompson Possible DC today Call NS with any issues Subjective: Pt resting in bed, feeling good overall. Objective: AAOx3 NAD VSS MAEx4 Motor 5/5 BLE Incision dressed cdi Jpx1 Urinary Catheter in Place: No Catheter Insertion Date: 07/16/18 - Physician Discussed Patient with : Clau Neurosurgery Physical Exam - Vitals, I&O, Labs I and O 07/17/18 07/18/18 07/19/18 05:59 05:59 05:59 Intake Total 1405 850 Output Total 585 65 30 Balance 820 785 -30 Weight 62.596 kg Intake: Oral (ml) 105 850 IV Intake (ml) 1300 Output: Urine (ml) 395 Catheter 395 Estimated Blood Loss (ml) 150 CLOVER Drain Output (ml) 40 65 30 #1 Right Back Willie 40 65 30 Park Other: Number of Voids Toilet 1 1 Vital Signs Temp Pulse Resp BP Pulse Ox 36.9 C 84 15 109/54 L 96 07/18/18 07:24 07/18/18 07:24 07/18/18 07:24 07/18/18 07:24 07/18/18 07:24 Laboratory Results 07/18/18 04:17 07/17/18 04:30 ICD10 Worksheet Patient Problems: Problems Problem Status Onset Fusion of spine of lumbar region Acute
[2018-07-18] MEDS: FAMOTIDINE 20 MG TAB PO SCH ×2 (09:16→21:49)
[2018-07-18] MEDS: POLYETHYLENE GLYCOL 3350 17 GM PKT PO SCH ×3 (09:16→21:49)
[2018-07-18] MEDS: MULTIVITAMINS 1 EACH TAB PO SCH (09:20)
[2018-07-18] MEDS: ANASTROZOLE 1 MG TAB PO SCH (09:20)
[2018-07-18] MEDS: METOPROLOL SUCCINATE XR 25 MG TAB PO SCH (09:21)
[2018-07-18] MEDS: PANTOPRAZOLE SODIUM 40 MG TAB PO SCH (09:23)
[2018-07-18] MEDS: SERTRALINE HCL 25 MG TAB PO SCH (09:23)
[2018-07-18] MEDS: SENNOSIDES/DOCUSATE SODIUM TAB PO SCH ×2 (09:27→21:49)
[2018-07-18] MEDS: METHOCARBAMOL 750 MG TAB PO PRN (09:40)
[2018-07-18] MEDS: ASPIRIN EC 81 MG TAB PO SCH (09:53)
[2018-07-18] MEDS: ENOXAPARIN 40 MG/0.4 ML SYR SC SCH (09:53)
--- NOTE | 2018-07-18 11:42 | HOSPPROG ---
Hospitalist Progress Note Assessment/Plan: Mandie Lezama is an 83 y/o female who has diabetes, htn, postoperative day 1 L2/ 3 transforaminal lumbar interbody fusion, lumbar laminectomy, and fusion. Today is my first encounter w the patient, chart reviewed. D/W Dr Miles * severe low back pain w radiculopathy -POD #2 s/p L3-5 hardware removal and L2/3 TLIF and L2-4 fusion *oozing from dressings -resolved -patient had been taking her aspirin -coags stable *leukocytosis -resolved * Postoperative nausea and vomiting -most likely due to effects of anesthesia. -resolved *History of type 2 diabetes mellitus. - restart her metformin until she is able to tolerate a regular diet. -sliding scale *Hypertension hx -systolic bp is in the 90's, the patient and her daughter says this is her baseline *DVT prophylaxis: lmwh Subjective: Feeling well. No pain currently. Better tehn yesterday. Objective: Vital Signs Temp Pulse Resp BP Pulse Ox 36.9 C 100 15 110/54 L 96 07/18/18 07:24 07/18/18 09:21 07/18/18 07:24 07/18/18 09:21 07/18/18 07:24 Laboratory Results 07/18/18 04:17 07/17/18 04:30 07/17/18 07/18/18 07/19/18 05:59 05:59 05:59 Intake Total 1405 850 Output Total 585 65 30 Balance 820 785 -30 PT 14.7 SEC (12.0-15.0) 07/17/18 08:55 INR 1.13 (0.83-1.16) 07/17/18 08:55 - Physical Exam Constitutional: no apparent distress, appears nourished, not in pain Eyes: PERRL, anicteric sclera, EOMI Ears, Nose, Mouth, Throat: moist mucous membranes, hearing normal, ears appear normal Cardiovascular: regular rate and rhythym, No JVD, No edema Respiratory: no respiratory distress, no rales or rhonchi, reduced air movement Gastrointestinal: normoactive bowel sounds, No tenderness, No ascites Skin: warm, normal color, No mottled Musculoskeletal: pain with ROM, muscular tenderness, generalized weakness Neurologic: AAOx3 Psychiatric: interacting appropriately, not anxious, not encephalopathic, thought process linear ICD10 Worksheet Patient Problems: Problems Problem Status Onset Fusion of spine of lumbar region Acute
--- NOTE | 2018-07-18 14:28 | ASMTCMCOM ---
CM Note CM Note Notes: Pt has progressed with therapies and today PT/OT rec HHC. [facility] can accept pt pending orders. Pt resides very close to [facility]. Pt dghtr who is an EMT and home health aid is available to assist pt, living close by. Pt and dghtr feel comfortable with d/c tomorrow, they will stay in local hotel and go back to [place] Sunday. D/c plan of care: HHC and dghtr support when medically stable Date Signed: 07/18/2018 02:04 PM Electronically Signed By:CHRISTIANA Bauer
[2018-07-18] MEDS: MAGNESIUM HYDROXIDE 30 ML UDCUP PO PRN (15:33)
[2018-07-19] MEDS: ONDANSETRON DISINTEGRATING 4 MG TAB PO PRN ×2 (01:43→09:34)
--- NOTE | 2018-07-19 07:52 | SOAPPROG ---
SOAP Progress Note Assessment/Plan: Assessment: POD #3 s/p L3-5 hardware removal and L2/3 TLIF and L2-4 fusion nausea and abdominal pain this AM. Abd xray result pending Plan: follow abd xray result. Continue aggressive bowel protocol for constipation advance activity PT/OT today TEDs, SCDs, start lovenox today CLOVER to bulb suction - leave in place Hospitalist consult - appreciate assistance D/w Dr Thompson Call NS with any issues Subjective: Pt resting in bed, complains of nausea. Very constipated unable to have BM despite enema Objective: Lumbar Xrays show stable hardware/graft AAOx3 NAD VSS MAEx4 Motor 5/5 BLE Incision: Dried blood inferiorly on dressing Jpx1: 40 ml overnight Objective: Vital Signs Temp Pulse Resp BP Pulse Ox 36.6 C 94 16 154/72 H 95 07/19/18 00:00 07/19/18 00:00 07/19/18 00:00 07/19/18 00:00 07/19/18 00:00 Laboratory Results 07/18/18 04:17 07/17/18 04:30 07/18/18 07/19/18 07/20/18 05:59 05:59 05:59 Intake Total 850 Output Total 65 80 40 Balance 785 -80 -40 PT 14.7 SEC (12.0-15.0) 07/17/18 08:55 INR 1.13 (0.83-1.16) 07/17/18 08:55 ICD10 Worksheet Patient Problems: Problems Problem Status Onset Fusion of spine of lumbar region Acute
[2018-07-19] MEDS: SENNOSIDES/DOCUSATE SODIUM TAB PO SCH ×2 (08:57→21:39)
[2018-07-19] MEDS: ANASTROZOLE 1 MG TAB PO SCH (08:58)
[2018-07-19] MEDS: MULTIVITAMINS 1 EACH TAB PO SCH (08:58)
[2018-07-19] MEDS: FAMOTIDINE 20 MG TAB PO SCH ×2 (08:58→21:39)
[2018-07-19] MEDS: ASPIRIN EC 81 MG TAB PO SCH (08:58)
[2018-07-19] MEDS: SERTRALINE HCL 25 MG TAB PO SCH (08:59)
[2018-07-19] MEDS: PANTOPRAZOLE SODIUM 40 MG TAB PO SCH (08:59)
[2018-07-19] MEDS: METOPROLOL SUCCINATE XR 25 MG TAB PO SCH (08:59)
[2018-07-19] MEDS: ENOXAPARIN 40 MG/0.4 ML SYR SC SCH (09:00)
[2018-07-19] MEDS: POLYETHYLENE GLYCOL 3350 17 GM PKT PO SCH ×3 (09:00→21:39)
[2018-07-19] MEDS: INSULIN LISPRO 100 UNIT/ML SC SCH ×3 (09:01→18:43)
[2018-07-19] MEDS: MAGNESIUM HYDROXIDE 30 ML UDCUP PO PRN (09:02)
[2018-07-19] MEDS: PROMETHAZINE HCL 25 MG/ML INJ IVP PRN (10:43)
--- NOTE | 2018-07-19 11:55 | HOSPPROG ---
Hospitalist Progress Note Assessment/Plan: Mandie Lezama is an 83 y/o female who has diabetes, htn, postoperative day 1 L2/ 3 transforaminal lumbar interbody fusion, lumbar laminectomy, and fusion. * severe low back pain w radiculopathy -POD #3 s/p L3-5 hardware removal and L2/3 TLIF and L2-4 fusion *oozing from dressings -resolved -patient had been taking her aspirin -coags stable *leukocytosis -resolved * Postoperative nausea and vomiting -resolved now returned -KUB stable -received multiple stool softners, treat -follow, exam stable *History of type 2 diabetes mellitus. - restart her metformin she is able to tolerate a regular diet. -sliding scale *Hypertension hx -systolic bp is in the 90's, the patient and her daughter says this is her baseline *Tachy -in setting of N/V -stable otherwise *DVT prophylaxis: lmwh Subjective: Feeling nauseaous. Pain ok. No other issues. Objective: Vital Signs Temp Pulse Resp BP Pulse Ox 36.7 C 90 16 156/73 H 97 07/19/18 11:24 07/19/18 11:24 07/19/18 11:24 07/19/18 11:24 07/19/18 11:24 Laboratory Results 07/18/18 04:17 07/17/18 04:30 07/18/18 07/19/18 07/20/18 05:59 05:59 05:59 Intake Total 850 420 Output Total 65 80 65 Balance 785 -80 355 PT 14.7 SEC (12.0-15.0) 07/17/18 08:55 INR 1.13 (0.83-1.16) 07/17/18 08:55 - Physical Exam Constitutional: appears nourished, not in pain, uncomfortable Eyes: PERRL, anicteric sclera, EOMI Ears, Nose, Mouth, Throat: moist mucous membranes, hearing normal, ears appear normal Cardiovascular: tachycardia, No JVD, No edema Respiratory: no respiratory distress, reduced air movement Gastrointestinal: No tenderness, No ascites Skin: normal color Musculoskeletal: normal joint ROM, pain with ROM, generalized weakness Neurologic: AAOx3 Psychiatric: interacting appropriately, not anxious, not encephalopathic ICD10 Worksheet Patient Problems: Problems Problem Status Onset Fusion of spine of lumbar region Acute
--- NOTE | 2018-07-19 16:05 | ASMTCMCOM ---
CM Note CM Note Notes: Pt not ready for d/c today. D/c plan remains home with [facility] [phone] F:[phone]. Nell has called and said [facility] can accept they will just need d/c orders/instructions faxed. Date Signed: 07/19/2018 04:00 PM Electronically Signed By:CHRISTIANA Bauer
[2018-07-19] MEDS: SIMETHICONE 80 MG TAB CHEW PO SCH ×3 (16:09→21:39)
[2018-07-20] MEDS: HYDROmorphONE/DILAUDID 4 MG TAB PO PRN (00:55)
[2018-07-20] MEDS: ONDANSETRON DISINTEGRATING 4 MG TAB PO PRN ×2 (01:08→08:30)
[2018-07-20] MEDS: SIMETHICONE 80 MG TAB CHEW PO SCH ×3 (02:10→11:12)
[2018-07-20] MEDS: ANASTROZOLE 1 MG TAB PO SCH (07:56)
[2018-07-20] MEDS: SENNOSIDES/DOCUSATE SODIUM TAB PO SCH (07:56)
[2018-07-20] MEDS: POLYETHYLENE GLYCOL 3350 17 GM PKT PO SCH (07:56)
[2018-07-20] MEDS: FAMOTIDINE 20 MG TAB PO SCH (07:56)
[2018-07-20] MEDS: METHOCARBAMOL 750 MG TAB PO PRN ×2 (07:57→18:37)
[2018-07-20] MEDS: MULTIVITAMINS 1 EACH TAB PO SCH (07:58)
[2018-07-20] MEDS: PANTOPRAZOLE SODIUM 40 MG TAB PO SCH (08:01)
[2018-07-20] MEDS: METOPROLOL SUCCINATE XR 25 MG TAB PO SCH (08:02)
[2018-07-20] MEDS: ASPIRIN EC 81 MG TAB PO SCH (08:02)
[2018-07-20] MEDS: SERTRALINE HCL 25 MG TAB PO SCH (08:02)
[2018-07-20] MEDS: ENOXAPARIN 40 MG/0.4 ML SYR SC SCH (08:05)
[2018-07-20] MEDS: INSULIN LISPRO 100 UNIT/ML SC SCH ×2 (08:05→14:57)
[2018-07-20] MEDS ORDERED: HYDROCODONE/APAP 5/325 TAB PO PRN (08:15)
[2018-07-20] MEDS: PROMETHAZINE HCL 25 MG/ML INJ IVP PRN (10:20)
--- NOTE | 2018-07-20 11:43 | NEUSURGPN ---
Date of Surgery: 07/16/18 Post Op Day: 4 Assessment/Plan: POD #4 s/p L3-5 hardware removal and L2/3 TLIF and L2-4 fusion nausea and abdominal pain improved, successful BM yesterday, abd nontender, nondistended Plan: Continue aggressive bowel protocol for constipation advance activity PT/OT TEDs, SCDs, lovenox CLOVER to bulb suction - leave in place will need to call office on sunday and report output Change dressing before DC Hospitalist consult - appreciate assistance Plan for Home with [facility] this am D/w Dr Thompson Call NS with any issues Subjective: doing better, had BM, still sore but better. No N/V. no weakness/numbness/ tingling in legs. Objective: NAD VSS AAOx4 EOMI, PEARLA MAEx4, 5/= incision dressed, CDI JPx1 130cc overnight Catheter Insertion Date: 07/16/18 - Physician Discussed Patient with : Clau Neurosurgery Physical Exam - Vitals, I&O, Labs I and O 07/19/18 07/20/18 07/21/18 05:59 05:59 05:59 Intake Total 720 Output Total 80 130 Balance -80 590 Intake: Oral (ml) 720 Output: CLOVER Drain Output (ml) 80 130 #1 Right Back Willie 80 130 Park Other: Output Comment Toilet fleet enema Number of Voids Toilet 1 1 1 Number of Stools Toilet 1 1 Vital Signs Temp Pulse Resp BP Pulse Ox 36.9 C 117 H 18 166/94 H 91 L 07/20/18 07:14 07/20/18 08:02 07/20/18 07:14 07/20/18 08:02 07/20/18 07:14 Laboratory Results 07/18/18 04:17 07/17/18 04:30 ICD10 Worksheet Patient Problems: Problems Problem Status Onset Fusion of spine of lumbar region Acute
--- NOTE | 2018-07-20 13:11 | HOSPPROG ---
Hospitalist Progress Note Assessment/Plan: Mandie Lezama is an 83 y/o female who has diabetes, htn, postoperative day 1 L2/ 3 transforaminal lumbar interbody fusion, lumbar laminectomy, and fusion. * severe low back pain w radiculopathy -POD #4 s/p L3-5 hardware removal and L2/3 TLIF and L2-4 fusion *oozing from dressings -resolved -patient had been taking her aspirin -coags stable *leukocytosis -resolved * Postoperative nausea and vomiting -resolved now returned -mild -KUB stable -received multiple stool softners, treat -follow, exam stable *History of type 2 diabetes mellitus. - restart her metformin she is able to tolerate a regular diet. -sliding scale *Hypertension hx -systolic bp is in the 90's, the patient and her daughter says this is her baseline *Tachy -in setting of N/V -stable otherwise *DVT prophylaxis: lmwh Subjective: Still having some nausea. Not throwing up. No other issues. Objective: Vital Signs Temp Pulse Resp BP Pulse Ox 36.9 C 117 H 18 166/94 H 91 L 07/20/18 07:14 07/20/18 08:02 07/20/18 07:14 07/20/18 08:02 07/20/18 07:14 Laboratory Results 07/18/18 04:17 07/17/18 04:30 07/19/18 07/20/18 07/21/18 05:59 05:59 05:59 Intake Total 720 Output Total 80 130 Balance -80 590 PT 14.7 SEC (12.0-15.0) 07/17/18 08:55 INR 1.13 (0.83-1.16) 07/17/18 08:55 - Physical Exam Constitutional: no apparent distress, not in pain Eyes: PERRL, anicteric sclera Ears, Nose, Mouth, Throat: moist mucous membranes, hearing normal Cardiovascular: No JVD, No edema Respiratory: no respiratory distress, reduced air movement Gastrointestinal: No tenderness, No ascites Skin: warm, normal color Musculoskeletal: pain with ROM, muscular tenderness, generalized weakness Neurologic: AAOx3 Psychiatric: interacting appropriately, not anxious, not encephalopathic ICD10 Worksheet Patient Problems: Problems Problem Status Onset Fusion of spine of lumbar region Acute
[2018-07-20] MEDS ORDERED: SCOPOLAMINE HYDROBROMIDE 1 MG/3 DAYS PATCH TD SCH (14:00)
--- NOTE | 2018-07-20 14:19 | PDIAF ---
- Diagnosis Diagnosis: spine surgery Code Status: Full Code - Medication Management Discharge Medications: Medications to Continue on Transfer Anastrozole [Arimidex 1 mg (*)] 1 mg PO DAILY 10/27/16 [Last Taken 07/15/18] C/E/Zn/Cu/OM3/DHA/EPA/LUT/ZEAX [Preservision Areds 2 Softgel] 1 each PO DAILY [Last Taken 07/15/18] Fluticasone Nasal [Flonase Nasal [place]] 1 sprays NASAL DAILY PRN 07/16/18 [Last Taken Unknown] Losartan Potassium [Cozaar 25 mg (*)] 25 mg PO DAILY 07/16/18 [Last Taken ] Lovastatin 20 mg PO HS 07/16/18 [Last Taken 07/15/18] Metoprolol Succinate Xr [Toprol Xl 25 mg (*)] 25 mg PO DAILY 07/16/18 [Last Taken 07/15/18] Multivitamins [Multivitamin (*)] 1 each PO DAILY 07/16/18 [Last Taken 07/15/18] Omeprazole 20 mg PO DAILY 07/16/18 [Last Taken 07/15/18] Oxybutynin Chloride [Ditropan] 5 mg PO DAILY PRN 07/16/18 [Last Taken Unknown] Sertraline HCl [Zoloft 25mg (*)] 25 mg PO DAILY 07/16/18 [Last Taken 07/15/18] metFORMIN HCL [Metformin HCl ER] 500 mg PO BID 07/16/18 [Last Taken 07/15/18] Methocarbamol [Robaxin 750 mg (*)] 750 mg PO QID PRN tab 07/20/18 [Last Taken Unknown] Polyethylene Glycol 3350 [Miralax 17 gm (*)] 17 gm PO TID pkt 07/20/18 [Last Taken Unknown] Scopolamine Hydrobromide [Scopolamine Patch] 1 patch TD Q72H 14 Days #5 patch [Last Taken Unknown] Sennosides/Docusate Sodium [Senokot-S] 1 - 2 tab PO BID 30 Days #60 tab [Last Taken Unknown] Simethicone [Mylicon] 80 mg PO PCHS tab.chew 07/20/18 [Last Taken Unknown] Aspirin EC [Aspirin EC 81 mg (*)] 81 mg PO DAILY #0 07/21/18 [Last Taken ] Discharge Medications: Refer to the Discharge Home Medication list for PRN reason. - Orders Services needed: Home Care, Physical Therapy, Occupational Therapy Home Care Face to Face: I certify that this patient was under my care and that I had the required [id number] encounter meeting the encounter requirements on the discharge day. My findings support the fact that the patient is homebound as defined in Home Care Face to Face Continued: CMS Chapter 7 Medicare Benefits Manual 30.1.1 , The condition of the patient is such that there exists a normal inability to leave home and consequently, leaving home would require a considerable and taxing effort. Additional Instructions: no bending, lifting, twisting >15lbs wear your brace when OOB See discharge instructions for management of your drain You may shower without any dressing, no baths or soaking until after your post op appointment call [phone] on sunday to report your Drain output and instructions as to whether or not to pull your drain. - Follow Up Care Current Providers and Referrals: Earl Olguin MD [Primary Care Provider] -
--- NOTE | 2018-07-20 14:48 | ASMTDCNOTE ---
Case Management Discharge Discharge Order Complete? Answers: Yes Patient to Obtain Answers: via Family Medications Transportation Arranged Answers: Family/Friends Faxed Final Orders Answers: Yes Discharge Comments Notes: Pt is discharging today. She will return to [place] tomorrow. [place] meds/order/the[place] [facility] [place] [facility] [phone] and also sent (faxed) through [employer]. Pt's daughter is accompanying her. Date Signed: 07/20/2018 02:47 PM Electronically Signed By:CHRISTIANA Baer
--- NOTE | 2018-07-20 14:49 | ASDISCHSUM ---
Discharge Information Plan Status:Home with Home Health Medically Cleared to Leave:07/20/2018 Discharge Date:07/20/2018 CM D/C Disposition:Home Health Service ADT D/C Disposition:[id number] Projected Discharge Date:07/20/2018 11:00 AM Transportation at D/C:Family Discharge Delay Reason: Follow-Up Date:07/20/2018 11:00 AM Discharge Slot: Final Diagnosis: Placement Information Referral Type:*Home Health Care Services Ref[facility] ID:[id number] [facility] Phone Number: Address 2: [address] Fax Number: City:[place] Selection Factors: State:[place] Patient Contact Information Contact Name:NEFTALY Relationship:Daughter Address:[address] Work Phone: City:[place] Alternate Phone: State/Zip Code:[place] [address] Email: Financial Information Financial Class:Medicare Primary Plan Desc:MEDICARE INPATIENT Primary Plan Number:[id number] Secondary Plan Desc:[place] Secondary Plan Number:[id number] Assessment Information LACE LACE Acuity / Level of Answers: Yes Care: Did the patient have an inpatient admission? 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 Pt with comorbidities including HTN, DMT2 and major depressive disorder, anxiety Chart review indicates pt resides alone in apartment in senior housing with a dghtr who lives close by. OT rec home/ HHC/SNF, PT rec HHC/home with 24/hr supervision. CM to follow pt for d/c planning. Date Signed: 07/17/2018 04:19 PM Electronically Signed By:CHRISTIANA Bauer [facility] CM Progress Note CM Note CM Note Notes: Pt has progressed with therapies and today PT/OT rec [facility]. [facility] can accept pt pending orders. Pt resides very close to [facility]. Pt dghtr who is an EMT and home health aid is available to assist pt, living close by. Pt and dghtr feel comfortable with d/c tomorrow, they will stay in local [facility] and go back to [place] Sunday. D/c plan of care: C and dghtr support when medically stable Date Signed: 07/18/2018 02:04 PM Electronically Signed By:CHRISTIANA Bauer [facility] CM Progress Note CM Note CM Note Notes: Pt not ready for d/c today. D/c plan remains home with [facility] [phone] F:[phone]. Nell has called and said [facility] can accept they will just need d/c orders/instructions faxed. Date Signed: 07/19/2018 04:00 PM Electronically Signed By:CHRISTIANA Bauer Case Management Discharge Plan Note Case Management Discharge Discharge Order Complete? Answers: Yes Patient to Obtain Answers: via Family Medications Transportation Arranged Answers: Family/Friends Faxed Final Orders Answers: Yes Discharge Comments Notes: Pt is discharging today. She will return to [place] tomorrow. D/C meds/order/therapy evals faxed to [facility] in [facility] [phone] and also sent (faxed) through [employer]. Pt's daughter is accompanying her. Date Signed: 07/20/2018 02:47 PM Electronically Signed By:CHRISTIANA Baer Intervention Information
[2018-07-20 16:54] VITALS: BP 165/82
[2018-07-23] MEDS ORDERED: PATCH REMOVAL 1 EA PATCH TD SCH (13:53)
== END 2018-07-20 18:43 | disposition home health service (06) | DRG 455 ==
LOC: F3N 10:34
PROVIDERS: ADMIT Neurological Surgery; ATTEND Neurological Surgery
DX: M48.061 Spinal stenosis, lumbar region without neurogenic claudication (principal); M51.16 Intervertebral disc disorders with radiculopathy, lumbar region; R11.2 Nausea with vomiting, unspecified; T41.205A Adverse effect of unspecified general anesthetics, initial encounter; I10 Essential (primary) hypertension; J43.9 Emphysema, unspecified; E11.9 Type 2 diabetes mellitus without complications; E78.5 Hyperlipidemia, unspecified; I25.9 Chronic ischemic heart disease, unspecified; G25.0 Essential tremor; F32.9 Major depressive disorder, single episode, unspecified; F41.9 Anxiety disorder, unspecified; G89.29 Other chronic pain; K21.9 Gastro-esophageal reflux disease without esophagitis; Z85.3 Personal history of malignant neoplasm of breast; Z79.84 Long term (current) use of oral hypoglycemic drugs
CPT/HCPCS: 97116-GP; 97161-GP; 97165-GO; 97530-GP; 97535-GO; C1713; C1762; G8978-GP-CJ; G8979-GP-CI; G8987-GO-CI; G8988-GO-CI; J0171; J0690; J0697; J1170; J1650; J1815; J2274; J2405; J2550; J2704; J3010; J7060